=== PATIENT | female | born 1985 | race Two or more races ===

== ENCOUNTER 2018-07-04 11:09 | Emergency (ER) | payer SELFPAY ==
[2018-07-04] MEDS ORDERED: IPRATROPIUM/ALBUTEROL 0.5-2.5 MG/3 ML AMPUL NEB ONE (11:25)
[2018-07-04] MEDS ORDERED: ONDANSETRON 4 MG TAB.RAPDIS PO ONE (11:25)
--- NOTE | 2018-07-04 11:26 | ER Document Report ---
ED Medical Screen (RME) - General Chief Complaint: Abdominal Pain Stated Complaint: ABDOMINAL PAIN Time Seen by Provider: 07/04/18 11:22 Notes: 32-year-old female patient complains of generalized abdominal pain for 3 days with nausea vomiting diarrhea. She also may have had fever. She has been coughing for the past month. She does have asthma. She has been using her inhaler 4 times a day. She was put on prednisone just over a week ago but has finished that. That medicine was prescribed in [facility], she just moved here. I have greeted and performed a rapid initial assessment of this patient. A comprehensive ED assessment and evaluation of the patient, analysis of test results and completion of the medical decision making process will be conducted by additional ED providers. TRAVEL OUTSIDE OF THE [place] IN LAST 30 DAYS: No Physical Exam - Vital signs Vitals: Temp Pulse Resp BP Pulse Ox 98.2 F 103 H 20 109/75 99 07/04/18 11:17 07/04/18 11:17 07/04/18 11:17 07/04/18 11:17 07/04/18 11:17 Course - Vital Signs Vital signs: Temp Pulse Resp BP Pulse Ox 98.2 F 103 H 20 109/75 99 07/04/18 11:17 07/04/18 11:17 07/04/18 11:17 07/04/18 11:17 07/04/18 11:17
[2018-07-04 12:03] LABS: ABSOLUTE LYMPHOCYTES (AUTO) 1.9 10^3/uL (0.5-4.7); ABSOLUTE MONOCYTES (AUTO) 0.5 10^3/uL (0.1-1.4); ABSOLUTE NEUT (AUTO) 2.5 10^3/uL (1.7-8.2); ALANINE AMINOTRANSFERASE 75 U/L (9-52); ALBUMIN 4.7 g/dL (3.5-5.0); ALKALINE PHOSPHATASE 127 U/L (38-126); ANION GAP 7 (5-19); ASPARTATE AMINO TRANSFERASE 83 U/L (14-36); BASOPHILS % (AUTO) 0.2 % (0-2); BILIRUBIN,DIRECT 0.2 mg/dL (0.0-0.4); BILIRUBIN,TOTAL 0.4 mg/dL (0.2-1.3); BLOOD UREA NITROGEN 13 mg/dL (7-20); CALCIUM 9.2 mg/dL (8.4-10.2); CARBON DIOXIDE 30 mmol/L (22-30); CHLORIDE 105 mmol/L (98-107); EOSINOPHILS % (AUTO) 0.9 % (0-6); GLUCOSE 93 mg/dL (75-110); HEMATOCRIT 38.1 % (36.0-47.0); HEMOGLOBIN 13.2 g/dL (12.0-15.5); LYMPHOCYTES % (AUTO) 37.8 % (13-45); MEAN CORPUSCULAR HEMOGLOBIN 28.4 pg (27.0-33.4); MEAN CORPUSCULAR HGB CONC 34.7 g/dL (32.0-36.0); MEAN CORPUSCULAR VOLUME 82 fl (80-97); MONOCYTES % (AUTO) 10.7 % (3-13); PLATELET COUNT 164 10^3/uL (150-450); POTASSIUM 4.8 mmol/L (3.6-5.0); RED BLOOD COUNT 4.65 10^6/uL (3.72-5.28); RED CELL DISTRIBUTION WIDTH 13.2 % (11.5-14.0); SEGMENTED NEUTROPHILS % (AUTO) 50.4 % (42-78); SODIUM 141.6 mmol/L (137-145); TOTAL CELLS COUNTED % (AUTO) 100 %; TOTAL PROTEIN 9.3 g/dL (6.3-8.2); WHITE BLOOD COUNT 4.9 10^3/uL (4.0-10.5)
--- NOTE | 2018-07-04 12:32 | RADIOLOGY REPORT (SQ) ---
EXAM DESCRIPTION: CHEST 2 VIEWS COMPLETED DATE/TIME: 07/04/2018 12:08 pm REASON FOR STUDY: Asthmatic bronchitis, coughing times 1 month COMPARISON: None. EXAM PARAMETERS: NUMBER OF VIEWS: two views TECHNIQUE: Digital Frontal and Lateral radiographic views of the chest acquired. RADIATION DOSE: NA LIMITATIONS: none FINDINGS: LUNGS AND PLEURA: No consolidation, pneumothorax or pleural effusion. MEDIASTINUM AND HILAR STRUCTURES: No masses or contour abnormalities. HEART AND VASCULAR STRUCTURES: Heart normal size. No evidence for failure. BONES: No acute findings. HARDWARE: None in the chest. IMPRESSION: NO ACUTE RADIOGRAPHIC FINDING IN THE CHEST. TECHNICAL DOCUMENTATION: JOB ID: [id number] 2010 [employer]- All Rights Reserved Reading location - IP/workstation name: [email or web address]
[2018-07-04] MEDS ORDERED: LIDOCAINE 1% INJ-PF (10 MG/ML) 30 ML SDV NEB ONE (13:17)
--- NOTE | 2018-07-04 14:16 | RADIOLOGY REPORT (SQ) ---
EXAM DESCRIPTION: U/S ABDOMEN LIMITED W/O DOP COMPLETED DATE/TIME: 07/04/2018 2:02 pm REASON FOR STUDY: ruq pain possible hx of cholecystectomy? COMPARISON: None. TECHNIQUE: Dynamic and static grayscale images acquired of the abdomen and recorded on PACS. Additio nal selected color Doppler and spectral images recorded. LIMITATIONS: Overlying bowel gas. FINDINGS: PANCREAS: The pancreas is partially obscured by overlying bowel gas. The visualized pancr eas is unremarkable. LIVER: The liver measures 17 cm. Echotexture normal. LIVER VASCULATURE: Normal directional flow of the main portal vein. GALLBLADDER: Surgically absent. ULTRASOUND-DETECTED FABIAN'S SIGN: Negative. INTRAHEPATIC DUCTS AND COMMON DUCT: CBD and intrahepatic ducts normal caliber. INFERIOR VENA CAVA: Patent. AORTA: No aneurysm at the visualized sec. RIGHT KIDNEY: Measures 10.9 cm in length. Normal echogenicity. No hydronephrosis. No calcifications . PERITONEAL AND RIGHT PLEURAL SPACE: No ascites or effusions. IMPRESSION: Status post cholecystectomy. No biliary ductal dilation. TECHNICAL DOCUMENTATION: JOB ID: [id number] [id number] 2010 [employer]- All Rights Reserved Reading location - IP/workstation name: [email or web address]
--- NOTE | 2018-07-04 14:50 | ER Document Report ---
ED General - General Chief Complaint: Abdominal Pain Stated Complaint: ABDOMINAL PAIN Time Seen by Provider: 07/04/18 11:22 TRAVEL OUTSIDE OF THE [place] IN LAST 30 DAYS: No - HPI Patient complains to provider of: Shortness of breath cough abdominal pain Notes: Patient recently moved to the area approximate 1 month ago from [place] patient does have a history of HIV patient states she is not on any HIV medications at this time nor does she know her CD4 count or her viral load. Patient states she currently does not have a clinic that she follow with and is currently looking for infectious disease clinic. Patient states shortness of breath ongoing for approximately 1 week does have a history of asthma. Patient states last time she was on steroids was greater than 2 weeks ago. Patient also states right upper quadrant abdominal pain. Patient is unaware she has had her gallbladder removed in the past however states that she did have a history of stones in had surgery for that patient is unaware she had an EGD laparoscopic cholecystectomy or open cholecystectomy. There are some surgical wounds on the abdomen. Patient otherwise is resting comfortably denies any production of sputum denies any fevers - Related Data Allergies/Adverse Reactions: No Known Allergies Allergy (Verified 07/04/18 11:30) Past Medical History - Social History Smoking Status: Never Smoker Frequency of alcohol use: None Drug Abuse: None Family History: Reviewed & Not Pertinent Patient has suicidal ideation: No Patient has homicidal ideation: No Pulmonary Medical History: Reports: Hx Asthma Renal/ Medical History: Denies: Hx Peritoneal Dialysis Review of Systems - Review of Systems Constitutional: No symptoms reported EENT: No symptoms reported Cardiovascular: No symptoms reported Respiratory: Short of breath Gastrointestinal: Abdominal pain Genitourinary: No symptoms reported Female Genitourinary: No symptoms reported Musculoskeletal: No symptoms reported Skin: No symptoms reported Hematologic/Lymphatic: No symptoms reported Neurological/Psychological: No symptoms reported -: Yes All other systems reviewed and negative Physical Exam - Vital signs Vitals: Temp Pulse Resp BP Pulse Ox 98.2 F 103 H 20 109/75 99 07/04/18 11:17 07/04/18 11:17 07/04/18 11:17 07/04/18 11:17 07/04/18 11:17 Interpretation: Normal - General General appearance: Appears well, Alert - HEENT Head: Normocephalic, Atraumatic Eyes: Normal Pupils: PERRL - Respiratory Respiratory status: No respiratory distress Chest status: Nontender Breath sounds: Normal, Wheezing - Fine scattered Chest palpation: Normal - Cardiovascular Rhythm: Regular Heart sounds: Normal auscultation Murmur: No - Abdominal Inspection: Normal Distension: No distension Bowel sounds: Normal Tenderness: Tender - Right upper quadrant tenderness no guarding or rebound Organomegaly: No organomegaly - Back Back: Normal, Nontender - Extremities General upper extremity: Normal inspection, Nontender, Normal color, Normal ROM, Normal temperature General lower extremity: Normal inspection, Nontender, Normal color, Normal ROM, Normal temperature, Normal weight bearing. No: Kerline's sign - Neurological Neuro grossly intact: Yes Cognition: Normal Orientation: AAOx4 Arin Coma Scale Eye Opening: Spontaneous Arin Coma Scale Verbal: Oriented Arin Coma Scale Motor: Obeys Commands Arin Coma Scale Total: 15 Speech: Normal Motor strength normal: LUE, RUE, LLE, RLE Sensory: Normal - Psychological Associated symptoms: Normal affect, Normal mood - Skin Skin Temperature: Warm Skin Moisture: Dry Skin Color: Normal Course - Re-evaluation Re-evalutation: 07/04/18 14:46 Chest x-ray laboratory studies showed only slightly elevation in the patient's liver function test slightly elevated AST ALT and alk phos because of the right upper quadrant pain ultrasound was performed showing the patient did undergo a cholecystectomy. Patient upon reevaluation resting comfortably will discharge patient home with Ventolin inhalers short course of steroids for underlying asthma. Patient will be given information for the infectious disease clinic at [facility]. Patient will be discharged home - Vital Signs Vital signs: Temp Pulse Resp BP Pulse Ox 98.5 F 81 18 118/73 100 07/04/18 15:28 07/04/18 15:28 07/04/18 15:28 07/04/18 15:28 07/04/18 15:28 - Laboratory Result Diagrams: 07/04/18 11:35 07/04/18 11:35 Laboratory results interpreted by me: 07/04/18 11:35 AST 83 H ALT 75 H Alkaline Phosphatase 127 H Total Protein 9.3 H Discharge - Discharge Clinical Impression: Right upper quadrant abdominal pain, History of cholecystectomy, History of HIV infection, Asthma exacerbation Condition: Good Disposition: HOME, SELF-CARE Instructions: Abdominal Pain ([facility]), Asthma ([facility]) Additional Instructions: Your ultrasound chest x-ray laboratory studies not show any critical pathology for your shortness of breath or your right upper quadrant abdominal pain would recommend a bland diet low-fat diet for the next 24-48 hours. Please use the inhaler that we gave you here in ER 2 puffs every 4 hours as needed for shortness of breath please avoid any smoking. Please take steroids as prescribed. Please follow-up with the clinic provided for your underlying HIV [facility] Physician Specialist [phone] Prescriptions: RX: Albuterol Sulfate [Proair HFA Inhalation Aerosol 8.5 gm MDI] 2 puff IH Q4H PRN #1 mdi PRN Reason: RX: Prednisone [Deltasone 20 mg Tablet] 3 tab PO DAILY 5 Days tablet Ranitidine HCl [Zantac 75 mg Tablet] 75 mg PO BID #30 tablet Forms: Return to Work
[2018-07-04] MEDS ORDERED: ALBUTEROL SULFATE HFA (90 MCG/PUFF) 8 GM MDI (1 MDI/ER DISP) IH ONE (14:51)
[2018-07-04] MEDS ORDERED: PREDNISONE 20 MG TABLET PO ONE (14:51)
[2018-07-04 15:29] VITALS: BP 118/73
== END 2018-07-04 15:33 | disposition home or self-care (01) ==
LOC: ER 11:09
DX: J45.901 Unspecified asthma with (acute) exacerbation (principal); R11.2 Nausea with vomiting, unspecified; R19.7 Diarrhea, unspecified; R10.11 Right upper quadrant pain; R10.84 Generalized abdominal pain; B20 Human immunodeficiency virus [HIV] disease; Z90.49 Acquired absence of other specified parts of digestive tract
CPT/HCPCS: 94640 ×2; 99284; 36415; 84703; 85025; 80053; 71046; 76705; S0119; J3490 ×2; J7512; J7620

== ENCOUNTER 2018-07-11 12:37 | Inpatient (IN) | payer SELFPAY ==
[2018-07-11] MEDS ORDERED: PANTOPRAZOLE SODIUM 40 MG VIAL IV PRN (13:09)
[2018-07-11] MEDS ORDERED: PANTOPRAZOLE SODIUM 40 MG VIAL IV ONE (13:09)
[2018-07-11] MEDS ORDERED: NORMAL SALINE 1000 ML 1,000 ML IV ONE ×2 (13:09→15:09)
[2018-07-11 13:53] LABS: ALANINE AMINOTRANSFERASE 48 U/L (9-52); ALBUMIN 4.3 g/dL (3.5-5.0); ALKALINE PHOSPHATASE 84 U/L (38-126); ANION GAP 13 (5-19); ASPARTATE AMINO TRANSFERASE 71 U/L (14-36); BILIRUBIN,DIRECT 0.4 mg/dL (0.0-0.4); BILIRUBIN,TOTAL 0.9 mg/dL (0.2-1.3); BLOOD UREA NITROGEN 16 mg/dL (7-20); CALCIUM 8.4 mg/dL (8.4-10.2); CARBON DIOXIDE 25 mmol/L (22-30); CHLORIDE 102 mmol/L (98-107); GLUCOSE 118 mg/dL (75-110); POTASSIUM 3.7 mmol/L (3.6-5.0); SODIUM 140.4 mmol/L (137-145); TOTAL PROTEIN 8.3 g/dL (6.3-8.2)
[2018-07-11 13:57] LABS: HEMATOCRIT 35.2 % (36.0-47.0); HEMOGLOBIN 11.9 g/dL (12.0-15.5); MEAN CORPUSCULAR HEMOGLOBIN 27.7 pg (27.0-33.4); MEAN CORPUSCULAR HGB CONC 33.8 g/dL (32.0-36.0); MEAN CORPUSCULAR VOLUME 82 fl (80-97); PLATELET COUNT 119 10^3/uL (150-450); RED BLOOD COUNT 4.29 10^6/uL (3.72-5.28); RED CELL DISTRIBUTION WIDTH 12.8 % (11.5-14.0); WHITE BLOOD COUNT 13.1 10^3/uL (4.0-10.5)
--- NOTE | 2018-07-11 14:13 | RADIOLOGY REPORT (SQ) ---
EXAM DESCRIPTION: CHEST SINGLE VIEW COMPLETED DATE/TIME: 07/11/2018 2:02 pm REASON FOR STUDY: vomit bld, pain in epigast+shoulder, r/o freeai r COMPARISON: 07/04/2018 EXAM PARAMETERS: NUMBER OF VIEWS: One view. TECHNIQUE: Single frontal radiographic view of the chest acquired. RADIATION DOSE: NA LIMITATIONS: None. FINDINGS: LUNGS AND PLEURA: Heterogeneous opacity of the right upper lobe, possibly with a small ass ociated effusion. Elevation of the right hemidiaphragm. MEDIASTINUM AND HILAR STRUCTURES: No masses. Contour normal. HEART AND VASCULAR STRUCTURES: Heart normal in size. Normal vasculature. BONES: No acute findings. HARDWARE: None in the chest. OTHER: Unremarkable partially included upper abdomen. IMPRESSION: Heterogeneous opacity of the right upper lobe, possibly with a small associated effusion . Elevation of the right hemidiaphragm. Findings are concerning for infection and possibly underlyi ng mass. Consider CT to further evaluate. At minimum recommend follow-up radiographs in 6 to 8 week s to ensure complete resolution. TECHNICAL DOCUMENTATION: JOB ID: [id number] [employer]- All Rights Reserved Reading location - IP/workstation name: [email or web address]
[2018-07-11 14:26] LABS: ABSOLUTE LYMPHOCYTES# (MANUAL) 0.8 10^3/uL (0.5-4.7); ABSOLUTE MONOCYTES # (MANUAL) 0.4 10^3/uL (0.1-1.4); ABSOLUTE NEUTROPHILS# (MANUAL) 11.9 10^3/uL (1.7-8.2); BAND NEUTROPHILS % (MANUAL) 5 % (3-5); BASOPHILS % (MANUAL) 0 % (0-2); EOSINOPHILS % (MANUAL) 0 % (0-6); LYMPHOCYTES % (MANUAL) 6 % (13-45); MONOCYTES % (MANUAL) 3 % (3-13); SEGMENTED NEUTROPHILS % (MAN) 86 % (42-78); TOTAL CELLS COUNTED 100
[2018-07-11 14:27] LABS: PLATELET COMMENT DECREASED
--- NOTE | 2018-07-11 14:58 | RADIOLOGY REPORT (SQ) ---
EXAM DESCRIPTION: CT CHEST WITH; CT ABD/PELVIS WITH IV ONLY COMPLETED DATE/TIME: 07/11/2018 2:44 pm; 07/11/2018 2:43 pm REASON FOR STUDY: RLL mass on CT with hemoptysis; vomiting blood, pain in epigast+shoulder CONTRAST TYPE AND DOSE: contrast/concentration: Isovue 350.00 mg/ml; Total Contrast Delivered: 94.0 ml; Total Saline Delivered: 71.0 ml RENAL FUNCTION: None required. The patient is less than 50 years old. COMPARISON: Same day chest radiograph, chest radiograph 07/04/2018 TECHNIQUE: CT scan of the chest performed using helical scanning technique with dynamic intravenous contrast injection. Images reviewed with lung, soft tissue and bone windows. Reconstructed coronal a nd sagittal MPR images reviewed. All images stored on PACS. All CT scanners at this facility use dose modulation, iterative reconstruction, and/or weight based d osing when appropriate to reduce radiation dose to as low as reasonably achievable (ALARA). [facility]: Dose Right [facility]: CareDose [facility]: Dose Right [facility]: Teradose 4D [facility]: [employer] RADIATION DOSE: CT Rad equipment meets quality standard of care and radiation dose reduction techniq ues were employed. CTDIvol: 11.6 - 15.4 mGy. DLP: 1669 mGy-cm.. LIMITATIONS: None. FINDINGS: AXILLAE: No adenopathy. CHEST WALL: No masses. No subcutaneous air. LUNGS: There is a large consolidation of the dependent right upper lobe. There is bandlike atelectas is or scarring of the right lower lobe. PLEURA: No effusions. No calcifications. THYROID: No masses or significant asymmetry. HILAR AND MEDIASTINAL STRUCTURES: No identified masses or abnormal nodes. AORTA AND GREAT VESSELS: No aneurysm. No dissection. PULMONARY ARTERIES: No identified pulmonary emboli. Study not optimized for the pulmonary arteries. HEART: No pericardial effusion. HARDWARE AND LIFELINES: None. BONES: No significant finding. OTHER: No other significant finding. IMPRESSION: Large consolidation of the dependent right upper lobe, likely infectious given rapid int erval resolution compared chest radiograph dated 07/04/2018. COMPARISON: None. RADIATION DOSE: CT Rad equipment meets quality standard of care and radiation dose reduction techniq ues were employed. CTDIvol: 11.6 - 15.4 mGy. DLP: 1669 mGy-cm.mGy. TECHNIQUE: CT scan of the abdomen and pelvis performed with intravenous and oral contrast using kayla mitchell scanning technique with dynamic intravenous contrast injection. Images reviewed with lung, soft tissue and bone windows. Reconstructed coronal and sagittal MPR images reviewed. Delayed images for evaluation of the urinary system also acquired and evaluated. All images stored on PACS. All CT scanners at this facility use dose modulation, iterative reconstruction, and/or weight based d osing when appropriate to reduce radiation dose to as low as reasonably achievable (ALARA). [facility]: Dose Right [facility]: SureCare [facility]: Dose Right [facility]: Teradose 4D [facility]: [employer] FINDINGS: LIVER: Normal size. No masses. No dilated ducts. Hepatic steatosis. SPLEEN: Normal size. No focal lesions. PANCREAS: No masses. No significant calcifications. No adjacent inflammation or peripancreatic flui d collections. Pancreatic duct not dilated. GALLBLADDER: Surgically absent. ADRENAL GLANDS: No significant masses or asymmetry. RIGHT KIDNEY AND URETER: No solid masses. No significant calcification. No hydronephrosis or hydroure ter. LEFT KIDNEY AND URETER: No solid masses. No significant calcification. No hydronephrosis or hydrouret er. AORTA AND VESSELS: No aneurysm. No dissection. Renal arteries, SMA, celiac without stenosis. RETROPERITONEUM: No retroperitoneal adenopathy, hemorrhage or masses. LARGE AND SMALL BOWEL: No dilatation. No masses. No wall thickening. APPENDIX: Normal. ABDOMINAL WALL: No hernia or masses. PERITONEAL CAVITY: No free air. No free fluid. No peritoneal implants or masses. PELVIS: No mass or free fluid. Normal bladder. BONES: No significant or acute findings. OTHER: No other significant finding. IMPRESSION: Status post cholecystectomy. Hepatic steatosis. No CT findings to explain acute abdomi nal pain. TECHNICAL DOCUMENTATION: JOB ID: [id number] Quality ID # [id number]: Final reports with documentation of one or more dose reduction techniques (e.g., Au tomated exposure control, adjustment of the mA and/or kV according to patient size, use of iterative reconstruction technique) 2010 [employer]- All Rights Reserved Reading location - IP/workstation name: [email or web address]
--- NOTE | 2018-07-11 14:58 | RADIOLOGY REPORT (SQ) ---
EXAM DESCRIPTION: CT CHEST WITH; CT ABD/PELVIS WITH IV ONLY COMPLETED DATE/TIME: 07/11/2018 2:44 pm; 07/11/2018 2:43 pm REASON FOR STUDY: RLL mass on CT with hemoptysis; vomiting blood, pain in epigast+shoulder CONTRAST TYPE AND DOSE: contrast/concentration: Isovue 350.00 mg/ml; Total Contrast Delivered: 94.0 ml; Total Saline Delivered: 71.0 ml RENAL FUNCTION: None required. The patient is less than 50 years old. COMPARISON: Same day chest radiograph, chest radiograph 07/04/2018 TECHNIQUE: CT scan of the chest performed using helical scanning technique with dynamic intravenous contrast injection. Images reviewed with lung, soft tissue and bone windows. Reconstructed coronal a nd sagittal MPR images reviewed. All images stored on PACS. All CT scanners at this facility use dose modulation, iterative reconstruction, and/or weight based d osing when appropriate to reduce radiation dose to as low as reasonably achievable (ALARA). [facility]: Dose Right [facility]: CareDose [facility]: Dose Right [facility]: Teradose 4D [facility]: [employer] RADIATION DOSE: CT Rad equipment meets quality standard of care and radiation dose reduction techniq ues were employed. CTDIvol: 11.6 - 15.4 mGy. DLP: 1669 mGy-cm.. LIMITATIONS: None. FINDINGS: AXILLAE: No adenopathy. CHEST WALL: No masses. No subcutaneous air. LUNGS: There is a large consolidation of the dependent right upper lobe. There is bandlike atelectas is or scarring of the right lower lobe. PLEURA: No effusions. No calcifications. THYROID: No masses or significant asymmetry. HILAR AND MEDIASTINAL STRUCTURES: No identified masses or abnormal nodes. AORTA AND GREAT VESSELS: No aneurysm. No dissection. PULMONARY ARTERIES: No identified pulmonary emboli. Study not optimized for the pulmonary arteries. HEART: No pericardial effusion. HARDWARE AND LIFELINES: None. BONES: No significant finding. OTHER: No other significant finding. IMPRESSION: Large consolidation of the dependent right upper lobe, likely infectious given rapid int erval resolution compared chest radiograph dated 07/04/2018. COMPARISON: None. RADIATION DOSE: CT Rad equipment meets quality standard of care and radiation dose reduction techniq ues were employed. CTDIvol: 11.6 - 15.4 mGy. DLP: 1669 mGy-cm.mGy. TECHNIQUE: CT scan of the abdomen and pelvis performed with intravenous and oral contrast using kayla mitchell scanning technique with dynamic intravenous contrast injection. Images reviewed with lung, soft tissue and bone windows. Reconstructed coronal and sagittal MPR images reviewed. Delayed images for evaluation of the urinary system also acquired and evaluated. All images stored on PACS. All CT scanners at this facility use dose modulation, iterative reconstruction, and/or weight based d osing when appropriate to reduce radiation dose to as low as reasonably achievable (ALARA). [facility]: Dose Right [facility]: SureCare [facility]: Dose Right [facility]: Teradose 4D [facility]: [employer] FINDINGS: LIVER: Normal size. No masses. No dilated ducts. Hepatic steatosis. SPLEEN: Normal size. No focal lesions. PANCREAS: No masses. No significant calcifications. No adjacent inflammation or peripancreatic flui d collections. Pancreatic duct not dilated. GALLBLADDER: Surgically absent. ADRENAL GLANDS: No significant masses or asymmetry. RIGHT KIDNEY AND URETER: No solid masses. No significant calcification. No hydronephrosis or hydroure ter. LEFT KIDNEY AND URETER: No solid masses. No significant calcification. No hydronephrosis or hydrouret er. AORTA AND VESSELS: No aneurysm. No dissection. Renal arteries, SMA, celiac without stenosis. RETROPERITONEUM: No retroperitoneal adenopathy, hemorrhage or masses. LARGE AND SMALL BOWEL: No dilatation. No masses. No wall thickening. APPENDIX: Normal. ABDOMINAL WALL: No hernia or masses. PERITONEAL CAVITY: No free air. No free fluid. No peritoneal implants or masses. PELVIS: No mass or free fluid. Normal bladder. BONES: No significant or acute findings. OTHER: No other significant finding. IMPRESSION: Status post cholecystectomy. Hepatic steatosis. No CT findings to explain acute abdomi nal pain. TECHNICAL DOCUMENTATION: JOB ID: [id number] Quality ID # [id number]: Final reports with documentation of one or more dose reduction techniques (e.g., Au tomated exposure control, adjustment of the mA and/or kV according to patient size, use of iterative reconstruction technique) 2010 [employer]- All Rights Reserved Reading location - IP/workstation name: [email or web address]
[2018-07-11] MEDS ORDERED: ACETAMINOPHEN 325 MG TABLET PO ONE (15:09)
[2018-07-11] MEDS ORDERED: LEVOFLOXACIN 750 MG/D5W RTU 750 MG/150 ML RTUPB IV ONE (15:09)
[2018-07-11 15:39] LABS: VENOUS BLOOD HCO3 23.9 mmol/L (20-32); VENOUS BLOOD PCO2 40.4 mmHg (35-63); VENOUS BLOOD PH 7.39 (7.30-7.42)
[2018-07-11] MEDS ORDERED: KETOROLAC TROMETHAMINE INJ/PF 30 MG/1 ML SDV IV ONE (15:40)
[2018-07-11 15:42] LABS: INTERNATIONAL RATION (INR) 1.07; PROTHROMBIN TIME 14.5 SEC (11.4-15.4)
--- NOTE | 2018-07-11 15:42 | ER Document Report ---
Entered by SHERIDAN LUCAS SCRIBE 07/11/18 1258 Acting as scribe for:ASAF SPENCER DO ED GI/ - General Chief Complaint: Flank Pain Stated Complaint: ABDOMINAL PAIN Time Seen by Provider: 07/11/18 12:42 Information source: Patient Notes: 32-year-old female who presents to the emergency department today with complaints of hemoptysis, hematemesis, and right upper quadrant and left lower quadrant abdominal pain. Patient states she thinks she has vomited about a teaspoon of blood in total since last night. Patient states her abdominal pain increases with deep breathing and coughing. Patient states that she takes Tylenol but denies taking ibuprofen. Patient states she is not sure if she is . Patient states last night she was very hot and sweaty but did not take her temperature. Patient also has had some diarrhea. TRAVEL OUTSIDE OF THE [place] IN LAST 30 DAYS: No - Related Data Allergies/Adverse Reactions: No Known Allergies Allergy (Verified 07/04/18 11:30) Past Medical History - General Information source: Patient, [facility] Records - Social History Smoking Status: Never Smoker Cigarette use (# per day): No Frequency of alcohol use: None Drug Abuse: None Family History: Reviewed & Not Pertinent Pulmonary Medical History: Reports: Hx Asthma Infectious Medical History: Reports: Hx HIV Surgical Hx: Negative Review of Systems - Review of Systems Constitutional: See HPI, Chills, Diaphoresis EENT: No symptoms reported Cardiovascular: No symptoms reported Respiratory: See HPI, Cough, Hemoptysis - about a teaspoon Gastrointestinal: See HPI, Abdominal pain, Diarrhea, Vomiting, Blood in vomit Genitourinary: No symptoms reported Female Genitourinary: No symptoms reported Musculoskeletal: No symptoms reported Skin: No symptoms reported Hematologic/Lymphatic: No symptoms reported Neurological/Psychological: No symptoms reported -: Yes All other systems reviewed and negative Physical Exam - Vital signs Vitals: Resp BP Pulse Ox 17 85/63 L 98 07/11/18 12:43 07/11/18 12:43 07/11/18 12:43 Interpretation: Hypotensive, Tachycardic, Tachypneic - Notes Notes: PHYSICAL EXAM GENERAL: Alert, interacts well. No acute distress. Hypotensive on bedside monitor, 91/79. HEAD: Normocephalic, atraumatic. EYES: Pupils equal, round, and reactive to light. Extraocular movements intact. ENT: Oral mucosa moist, tongue midline. NECK: Full range of motion. Supple. Trachea midline. LUNGS: Rhonchi in the right lower lobe, no wheezes or rales. No respiratory distress. HEART: Tachycardic, regular rhythm. No murmurs, gallops, or rubs. ABDOMEN: Soft, mild generalized abdominal tenderness with palpation. Non- distended. Bowel sounds present in all 4 quadrants. No guarding, rigidity, or rebound. EXTREMITIES: Moves all 4 extremities spontaneously. No edema, radial and dorsalis pedis pulses 2/4 bilaterally. No cyanosis. NEUROLOGICAL: Alert and oriented x3. Normal speech. PSYCH: Normal affect, normal mood. SKIN: Warm, diaphoretic, normal turgor. No rashes or lesions noted. Course - Re-evaluation Re-evalutation: 07/11/18 15:39 On arrival with the concern and report of hematemesis as well as hemoptysis I was worried for the potential of perforated gastric ulcer considering her hypotension abdominal pain, upright chest x-ray did not show any free air, patient refused an acute abdominal series until test could be completed, test is negative, upright chest x-ray did not show any free air but it did show a large right upper lobe consolidation concerning for possible malignancy versus infection. CT scan of chest abdomen pelvis was performed looking for sources of infections and causes of her hemoptysis and hematemesis and to further investigate this lesion. CT scan showed large consolidation in the dependent portion of the right upper lobe, CT scan the abdomen pelvis showed hepatic steatosis but no other abnormalities. No evidence of free air. Patient had a leukocytosis of 13.1, mild anemia with a hemoglobin 11.9, platelets low at 119, now that we know that this is not a perforated ulcer I did stop the order for Protonix and she then developed a fever, she now meets sepsis criteria with her tachycardia, hypotension, fever and source of infection. As soon as this was identified she was started on Levaquin and the sepsis protocol was started, CMP grossly unremarkable. EKG is nonischemic. test is negative. Discussed with , who accepted the patient to his service. 07/11/18 15:40 Patient actually meets criteria for severe sepsis but not septic shock. Patient was given a liter of lactated Ringer's by EMS which was completed here and documented by the nurse. Patient will have shortly completed her 30 mL/kg of IV fluids. 07/11/18 16:38 Dr. Bennett reviewed prior note from Dr. Riley when she was in the emergency department within the past month, he noted in his narrative that the patient had a history of HIV but is no longer followed for this and no longer takes any medications. Taking this into consideration we have also added Bactrim as a treatment for her pneumonia in case this represents P. jerovecii pneumonia. Patient also had HIV added to her past medical history. - Vital Signs Vital signs: Temp Pulse Resp BP Pulse Ox 102.7 F H 37 H 102/62 96 07/11/18 14:40 07/11/18 16:01 07/11/18 16:01 07/11/18 16:01 - Laboratory Result Diagrams: 07/11/18 12:42 07/11/18 12:42 Laboratory results interpreted by me: 07/11/18 07/11/18 07/11/18 12:42 12:42 15:28 WBC 13.1 H Hgb 11.9 L Hct 35.2 L Plt Count 119 L Seg Neuts % (Manual) 86 H Lymphocytes % (Manual) 6 L Abs Neuts (Manual) 11.9 H Glucose 118 H Lactic Acid 2.2 H AST 71 H Total Protein 8.3 H - EKG Interpretation by Me Additional EKG results interpreted by me: 07/11/18 15:39 EKG shows sinus tachycardia at a rate of 129, normal axis, normal intervals, no ST segment elevations or depressions, no T wave inversions per my interpretation. Critical Care Note - Critical Care Note Total time excluding time spent on procedures (mins): 35 Discharge - Discharge Clinical Impression: Severe sepsis, History of cholecystectomy, Hepatic steatosis, History of HIV infection Right upper lobe pneumonia Qualifiers: Pneumonia type: due to unspecified organism Qualified Code(s): J18.1 - Lobar pneumonia, unspecified organism Condition: Serious Disposition: ADMITTED INPATIENT Admitting Provider: [facility] Admitted: ANNA Scribe Attestation: 07/11/18 16:39 I personally performed the services described in the documentation, reviewed and edited the documentation which was dictated to the scribe in my presence, and it accurately records my words and actions. I personally performed the services described in the documentation, reviewed and edited the documentation which was dictated to the scribe in my presence, and it accurately records my words and actions.
[2018-07-11] MEDS ORDERED: SULFAMETHOXAZOLE/TRIMETHOPRIM 800-160 MG TABLET PO ONE (16:19)
[2018-07-11] MEDS ORDERED: NORMAL SALINE 1000 ML 1,000 ML IV PRN (16:57)
[2018-07-11] MEDS ORDERED: ALBUTEROL SULFATE 0.083% NEB 2.5 MG/3 ML AMPUL NEB PRN (16:57)
[2018-07-11] MEDS ORDERED: NORMAL SALINE 1000 ML 500 ML IV ONE (17:21)
--- NOTE | 2018-07-11 17:44 | EKG REPORT ---
SEVERITY:- OTHERWISE NORMAL ECG - SINUS TACHYCARDIA : Confirmed by: Ben Hawk MD 11-Jul-2018 17:43:56
--- NOTE | 2018-07-11 17:48 | PDOC H&P ---
History of Present Illness Admission Date/PCP: 07/11/18 16:08 no pcp Patient complains of: shortness of breath and abdominal pain History of Present Illness: EDVIN HOOK is a 32 year old female with no significant past medical history except for asthma presented to the ED complaining of shortness of breath and abdominal pain. Patient states that she has been having abdominal pain for a while and shortness of breath also been going on for a few weeks. Patient was recently seen in the ER here on 07/04/18 complaining of similar symptoms. At that point she was given prednisone and discharged home and told that her abdominal pain was most likely due to reflux. Patient states that she continues to have epigastric abdominal pain and states that sometimes is worse with drinking coffee. She denies any history excessive use of ibuprofen, aspirin or other NSAIDs. She does tell me that she thinks she has a history of reflux but she does not really follow a appropriate diet and lifestyle. She states that she did not take any thing for her reflux. States that the pain does not radiate anywhere and usually stays in the epigastrium. She denies any other associated symptoms such as nausea or vomiting. Patient tells me that she has been feeling short of breath for a few weeks now. She is not sure why. She has recently moved from [facility], [place] and has been living here in [place] for the last 4 months. She did not have any insurance or any primary care doctor. States she has also been coughing for about a month. Dates she is also been having some pleuritic chest pain on the right side which started last night. She also is complaining of her hair falling off. Last night she also coughed up some small amounts of blood with her cough and that is why she came to the ER today for evaluation. She denies any night sweats but has been coughing and started to spit up some small amounts of blood but she states is not always. I asked patient if he has any medical problem and she tells me she has history of asthma but otherwise is healthy. I asked her if she has HIV as she told the ER doctor and her previous visit to the ER a few days ago. Patient states "I am not sure but I think I do". Patient states that her mother of cancer of the head her hair fell off. Patient states that her father has a history of heart disease. Past Medical History Pulmonary Medical History: Reports: Asthma Infectious Medical History: Reports: HIV - Tested + in 2007, not retested, never took meds, doesn't believe she has it Social History Information Source: Patient Smoking Status: Never Smoker - Advance Directive Resuscitation Status: Full Code Family History Family History: Other - Heart disease in father, cancer in mother of unknown origin Parental Family History Reviewed: Yes - Mother had a history of cancer-unknown per patient, father's history of hea Children Family History Reviewed: Unknown Sibling(s) Family History Reviewed.: Unknown Medication/Allergy Home Medications: Albuterol Sulfate [Proair HFA Inhalation Aerosol 8.5 gm MDI] 2 puff IH Q4H PRN #1 mdi 07/04/18 Prednisone [Deltasone 20 mg Tablet] 3 tab PO DAILY 5 Days tablet 07/04/18 Ranitidine HCl [Zantac 75 mg Tablet] 75 mg PO BID #30 tablet 07/04/18 Allergies/Adverse Reactions: No Known Allergies Allergy (Verified 07/04/18 11:30) Physical Exam Vital Signs: Temp Pulse Resp BP Pulse Ox 101.7 F H 33 H 93/57 L 96 07/11/18 16:41 07/11/18 16:30 07/11/18 16:30 07/11/18 16:30 Intake & Output 07/10/18 07/11/18 07/12/18 06:59 06:59 06:59 Weight 180 lb General appearance: PRESENT: mild distress Head exam: PRESENT: atraumatic, normocephalic Eye exam: PRESENT: EOMI. ABSENT: conjunctival injection, scleral icterus Ear exam: PRESENT: normal external ear exam Mouth exam: PRESENT: moist, tongue midline Neck exam: ABSENT: tracheal deviation Respiratory exam: PRESENT: accessory muscle use, decreased breath sounds - Poor inspiratory effort, symmetrical, tachypnea Cardiovascular exam: PRESENT: +S1, +S2, tachycardia GI/Abdominal exam: PRESENT: normal bowel sounds, soft, tenderness - Epigastric tender to palpation Extremities exam: ABSENT: pedal edema, +2 edema Neurological exam: PRESENT: alert, awake, oriented to person, oriented to place, oriented to time, CN II-XII grossly intact Skin exam: PRESENT: dry, warm Results Laboratory Results: 07/11/18 12:42 07/11/18 12:42 07/11/18 07/11/18 07/11/18 12:42 12:42 12:42 WBC 13.1 H RBC 4.29 Hgb 11.9 L Hct 35.2 L MCV 82 MCH 27.7 MCHC 33.8 RDW 12.8 Plt Count 119 L Seg Neutrophils % Not Reportable Lymphocytes % Not Reportable Monocytes % Not Reportable Eosinophils % Not Reportable Basophils % Not Reportable Absolute Neutrophils Not Reportable Absolute Lymphocytes Not Reportable Absolute Monocytes Not Reportable Absolute Eosinophils Not Reportable Absolute Basophils Not Reportable VBG pH VBG pCO2 VBG HCO3 VBG Base Excess Sodium 140.4 Potassium 3.7 Chloride 102 Carbon Dioxide 25 Anion Gap 13 BUN 16 Creatinine 0.93 Est GFR ( Amer) > 60 Est GFR (Non-Af Amer) > 60 Glucose 118 H Lactic Acid Calcium 8.4 Total Bilirubin 0.9 AST 71 H ALT 48 Alkaline Phosphatase 84 Total Protein 8.3 H Albumin 4.3 Serum HCG, Qual NEGATIVE 07/11/18 07/11/18 15:09 15:28 WBC RBC Hgb Hct MCV MCH MCHC RDW Plt Count Seg Neutrophils % Lymphocytes % Monocytes % Eosinophils % Basophils % Absolute Neutrophils Absolute Lymphocytes Absolute Monocytes Absolute Eosinophils Absolute Basophils VBG pH 7.39 VBG pCO2 40.4 VBG HCO3 23.9 VBG Base Excess -1.0 Sodium Potassium Chloride Carbon Dioxide Anion Gap BUN Creatinine Est GFR ( Amer) Est GFR (Non-Af Amer) Glucose Lactic Acid 2.2 H Calcium Total Bilirubin AST ALT Alkaline Phosphatase Total Protein Albumin Serum HCG, Qual Impressions: Abdomen/Pelvis CT 07/11/18 13:09 IMPRESSION: Large consolidation of the dependent right upper lobe, likely infectious given rapid interval resolution compared chest radiograph dated 07/04/2018. IMPRESSION: Status post cholecystectomy. Hepatic steatosis. No CT findings to explain acute abdominal pain. Chest X-Ray 07/11/18 13:09 IMPRESSION: Heterogeneous opacity of the right upper lobe, possibly with a small associated effusion. Elevation of the right hemidiaphragm. Findings are concerning for infection and possibly underlying mass. Consider CT to further evaluate. At minimum recommend follow-up radiographs in 6 to 8 weeks to ensure complete resolution. Chest CT 07/11/18 14:18 IMPRESSION: Large consolidation of the dependent right upper lobe, likely infectious given rapid interval resolution compared chest radiograph dated 07/04/2018. IMPRESSION: Status post cholecystectomy. Hepatic steatosis. No CT findings to explain acute abdominal pain. Assessment & Plan - Diagnosis (1) Severe sepsis Is this a current diagnosis for this admission?: Yes (2) Asthma exacerbation Qualifiers: Asthma severity: unspecified severity Asthma persistence: unspecified Qualified Code(s): J45.901 - Unspecified asthma with (acute) exacerbation Is this a current diagnosis for this admission?: Yes (3) Epigastric abdominal tenderness Is this a current diagnosis for this admission?: Yes (4) History of HIV infection Is this a current diagnosis for this admission?: Yes (5) Right upper lobe pneumonia Qualifiers: Pneumonia type: due to unspecified organism Qualified Code(s): J18.1 - Lobar pneumonia, unspecified organism Is this a current diagnosis for this admission?: Yes (6) Hemoptysis Is this a current diagnosis for this admission?: Yes (7) Hypotension Is this a current diagnosis for this admission?: Yes - Time Time Spent: Greater than 70 Minutes Anticipated discharge: Home - Inpatient Certification Based on my medical assessment, after consideration of the patient's comorbidities, presenting symptoms, or acuity I expect that the services needed warrant INPATIENT care.: Yes I certify that my determination is in accordance with my understanding of Medicare's requirements for reasonable and necessary INPATIENT services [42 CFR 412.3e].: Yes Medical Necessity: Need Close Monitoring Due to Risk of Patient Decompensation, Need For IV Fluids, Need For Continuous Telemetry Monitoring, Need for IV Antibiotics, Risk of Complication if Not Cared For in Hospital - Plan Summary Plan Summary: Severe sepsis-elevated heart rate, hypotensive, elevated WBC count and lactic acid. In the ED she received 1 dose of Levaquin and p.o. Bactrim. I called pharmacy and spoke to them about the fact that she may have HIV and now she has this right-sided consolidation suspicious for infectious causes. I am worried that if she has HIV that this organism might be pneumocystis versus Mycobacterium or other causes. At this time I was recommended by pharmacy to start IV azithromycin and IV Bactrim. Blood cultures are drawn and pending. I will also send for sputum cultures, fungal cultures. Repeat lactic acid in 3 hours until less than 2. Right upper lobe pneumonia-plan above Asthma exacerbation-we will start her on DuoNeb every 6 hours and albuterol as needed. Epigastric tenderness-most likely related to reflux-we will start her on Pepcid twice daily. Hemoptysis-states she brought up some small amounts of blood with her sputum as she has been coughing for the last month or so now. We will continue to monitor and repeat CBC in the morning. Hemoglobin seems to be stable. At this time I am also concerned about TB since she has an upper lobe ?consolidations/Infection-we will place her on airborne precaution and check AFB. History of HIV-questionable at this time as patient did not initially tell ED physician that she had it. In her previous visit on 07/04/18 she had mentioned to the ER doctor at that time since he documented on his chart. As per ER doctor at that time she has been looking for an infectious disease doctor in [place] but currently is not on any medications. I have sent for HIV and quantitative PCR. I have also sent for other HIV related blood work such as hepatitis, RPR, fungal cultures, lipid panel, TSH and GC/chlamydia. Hypertension-most likely secondary to severe sepsis-we will start on IV fluids at 125 cc an hour and give fluid boluses as needed. Placed in IMCU for now. If she requires pressors then we will start when appropriate.
[2018-07-11 17:56] LABS: CHOLESTEROL 104.39 mg/dL (0-200); TRIGLYCERIDES 54 mg/dL (<150)
[2018-07-11] MEDS ORDERED: SULFAMETHOX/TRIMETH 800-160 MG/10 ML VIAL IV PRN (17:58)
[2018-07-11 18:07] LABS: DIRECT LDL 61 mg/dL (<100)
[2018-07-11 18:58] LABS: APPEARANCE,URINE CLEAR; BILIRUBIN,URINE NEGATIVE (NEGATIVE); COLOR,URINE YELLOW; GLUCOSE, URINE NEGATIVE (NEGATIVE); KETONES,URINE NEGATIVE (NEGATIVE); LEUKOCYTE ESTERASE,URINE NEGATIVE (NEGATIVE); NITRITE,URINE NEGATIVE (NEGATIVE); PROTEIN,URINE NEGATIVE (NEGATIVE); URINE SPECIFIC GRAVITY 1.046; UROBILINOGEN,URINE NEGATIVE mg/dL (<2.0)
[2018-07-11 19:13] LABS: URINE AMPHETAMINES SCREEN NEGATIVE; URINE BARBITURATES SCREEN NEGATIVE; URINE BENZODIAZEPINES SCREEN NEGATIVE; URINE COCAINE SCREEN NEGATIVE; URINE MARIJUANA (THC) SCREEN NEGATIVE; URINE METHADONE SCREEN NEGATIVE; URINE PHENCYCLIDINE SCREEN NEGATIVE
[2018-07-11] MEDS ORDERED: NORMAL SALINE 500 ML IV ONE (19:15)
[2018-07-11] MEDS: IPRATROPIUM/ALBUTEROL 0.5-2.5 MG/3 ML AMPUL NEB SCH (20:40)
[2018-07-11] MEDS ORDERED: SULFAMETHOX/TRIMETH 800-160 MG/10 ML VIAL IV ONE (20:46)
[2018-07-11] MEDS: WATER IV SCH ×2 (22:00→23:44)
[2018-07-11] MEDS: TRIMETHOPRIM IV SCH ×2 (22:00→23:44)
[2018-07-11] MEDS: SULFAMETHOXAZOLE IV SCH ×2 (22:00→23:44)
[2018-07-11] MEDS: DEXTROSE 5% IV SCH ×2 (22:00→23:44)
[2018-07-11] MEDS: FAMOTIDINE 20 MG TABLET PO SCH (22:06)
[2018-07-11] MEDS: ACETAMINOPHEN 325 MG TABLET PO PRN (22:06)
[2018-07-11] MEDS: KETOROLAC TROMETHAMINE INJ/PF 30 MG/1 ML SDV IV PRN (23:52)
[2018-07-12] MEDS ORDERED: SULFAMETHOX/TRIMETH 800-160 MG/10 ML VIAL IV ONE (04:58)
[2018-07-12 05:39] LABS: ABSOLUTE LYMPHOCYTES (AUTO) 1.2 10^3/uL (0.5-4.7); ABSOLUTE MONOCYTES (AUTO) 0.4 10^3/uL (0.1-1.4); ABSOLUTE NEUT (AUTO) 11.9 10^3/uL (1.7-8.2); BASOPHILS % (AUTO) 0.2 % (0-2); HEMATOCRIT 30.6 % (36.0-47.0); HEMOGLOBIN 10.6 g/dL (12.0-15.5); LYMPHOCYTES % (AUTO) 9.1 % (13-45); MEAN CORPUSCULAR HEMOGLOBIN 28.2 pg (27.0-33.4); MEAN CORPUSCULAR HGB CONC 34.7 g/dL (32.0-36.0); MEAN CORPUSCULAR VOLUME 81 fl (80-97); RED BLOOD COUNT 3.77 10^6/uL (3.72-5.28); RED CELL DISTRIBUTION WIDTH 13.1 % (11.5-14.0); SEGMENTED NEUTROPHILS % (AUTO) 87.7 % (42-78); TOTAL CELLS COUNTED % (AUTO) 100 %; WHITE BLOOD COUNT 13.6 10^3/uL (4.0-10.5)
[2018-07-12] MEDS: WATER IV SCH ×3 (05:51→18:45)
[2018-07-12] MEDS: SULFAMETHOXAZOLE IV SCH ×3 (05:51→18:45)
[2018-07-12] MEDS: DEXTROSE 5% IV SCH ×3 (05:51→18:45)
[2018-07-12] MEDS: TRIMETHOPRIM IV SCH ×3 (05:51→18:45)
[2018-07-12] MEDS ORDERED: ONDANSETRON HCL INJ/PF 4 MG/2 ML SDV ONE ×2 (05:52→09:20)
[2018-07-12] MEDS ORDERED: ONDANSETRON HCL INJ/PF 4 MG/2 ML SDV IV ONE (06:00)
[2018-07-12] MEDS: KETOROLAC TROMETHAMINE INJ/PF 30 MG/1 ML SDV IV PRN ×2 (06:00→21:51)
[2018-07-12 06:06] LABS: ANION GAP 8 (5-19); BLOOD UREA NITROGEN 17 mg/dL (7-20); CALCIUM 7.1 mg/dL (8.4-10.2); CARBON DIOXIDE 23 mmol/L (22-30); CHLORIDE 110 mmol/L (98-107); GLUCOSE 82 mg/dL (75-110); SODIUM 141.3 mmol/L (137-145)
[2018-07-12 06:28] LABS: PLATELET COUNT 88 10^3/uL (150-450)
[2018-07-12 07:40] LABS: CHLAM PCR NOT DETECTED (NOT DETECT); GON PCR NOT DETECTED (NOT DETECT)
[2018-07-12] MEDS: IPRATROPIUM/ALBUTEROL 0.5-2.5 MG/3 ML AMPUL NEB SCH ×3 (08:19→20:06)
[2018-07-12] MEDS: ENOXAPARIN SODIUM INJ 40 MG/0.4 ML DISP.SYRIN SUBCUT SCH (09:19)
[2018-07-12] MEDS: FAMOTIDINE 20 MG TABLET PO SCH ×2 (09:19→21:46)
[2018-07-12] MEDS: AZITHROMYCIN 500 MG in DEXTROSE 5%-WATER 250 ML IV SCH (09:27)
[2018-07-12] MEDS ORDERED: LIDOCAINE 2% INJ-PF (20 MG/ML) 10 ML AMPUL ONE (10:19)
[2018-07-12] MEDS ORDERED: PROPOFOL INJ 200 MG/20 ML VIAL IV ONE (10:20)
[2018-07-12] MEDS ORDERED: FENTANYL CITRATE INJ/PF 100 MCG/2 ML AMPUL IV PRN ×3 (10:24)
[2018-07-12] MEDS ORDERED: PROMETHAZINE HCL INJ 25 MG/1 ML VIAL IV PRN ×2 (10:24)
[2018-07-12] MEDS ORDERED: DIPHENHYDRAMINE HCL 50 MG/ML VIAL IV PRN (10:24)
[2018-07-12] MEDS ORDERED: MEPERIDINE HCL/PF INJ 25 MG/1 ML DISP.SYRIN IV PRN (10:24)
--- NOTE | 2018-07-12 11:10 | Operative Report ---
Operative Report DATE OF SURGERY: 07/12/18 PREOPERATIVE DIAGNOSIS: 1. Abdominal pain. 2. Cough POSTOPERATIVE DIAGNOSIS: No significant pathology identified on upper endoscopy OPERATION: Esophagogastroduodenoscopy with random biopsy of antrum SURGEON: MO MARTÍNEZ ANESTHESIA: LMAC TISSUE REMOVED OR ALTERED: Biopsy gastric antrum COMPLICATIONS: None ESTIMATED BLOOD LOSS: Scant INTRAOPERATIVE FINDINGS: See below PROCEDURE: Patient was taken from the holding area to the isolation room outside of the main operating room at [place]. Appropriate isolation equipment implemented and protection of staff initiated. Surgical plan surgical timeout conducted. The patient was appropriately sedated by the change of address clerk. Oral mouthpiece was inserted. The flexible upper endoscope was advanced to the oropharynx, down the esophagus through the stomach into the duodenum. Good visualization of the first and second portions of the duodenum were achieved. There was no evidence of tumor stricture bleeding or polyp. The scope was brought back to the pylorus which was normal. Photographs taken. The stomach was visualized. There was no evidence of bleeding erythema etc. No evidence of retained gastric contents. A random biopsy of the gastric antrum chosen for DENNIS testing. Bleeding was minimal. The scope was retroflexed in the stomach. No significant hilar hernia. Scope was brought back through the GE junction. No significant pathology seen here. Scope was brought back to the esophagus. No evidence of esophagitis or stricture or varices. Scope was withdrawn with the patient oropharynx. SHe tolerated the procedure well. Impression: No upper gastrointestinal source for patient's abdominal pain Recommendations: Continue to pursue other sources of patient's abdominal pain; CT scan yesterday revealed no evidence of intra-abdominal pathology, however the study was limited due to absence of oral contrast. she has had a laparoscopic cholecystectomy in [facility] approximately 4 years ago
--- NOTE | 2018-07-12 11:58 | PDOC PROGRESS REPORT ---
Subjective Progress Note for:: 07/12/18 Subjective:: states she's still having epigastric pain and right sided pain in her chest, specially when she takes a deep breath. states it doesn't as much if she doesn't breath too deeply. otherwise she has no other complaints Reason For Visit: ACUTE RESPIRATORY FAILURE, PNEUMONIA Physical Exam Vital Signs: Temp Pulse Resp BP Pulse Ox 97.5 F 95 20 98/62 L 97 07/12/18 07:34 07/12/18 08:20 07/12/18 08:20 07/12/18 07:34 07/12/18 08:20 Intake & Output 07/11/18 07/12/18 07/13/18 06:59 06:59 06:59 Intake Total 3868.75 518.75 Balance 3868.75 518.75 Weight 192 lb 0.362 oz General appearance: PRESENT: no acute distress Head exam: PRESENT: atraumatic, normocephalic Eye exam: PRESENT: EOMI. ABSENT: conjunctival injection, scleral icterus Ear exam: PRESENT: normal external ear exam Mouth exam: PRESENT: dry mucosa, tongue midline Neck exam: ABSENT: tracheal deviation Respiratory exam: PRESENT: decreased breath sounds - decreased on the right side, rhonchi - right sided, symmetrical Cardiovascular exam: PRESENT: +S1, +S2 Pulses: PRESENT: +2 pedal pulses bilateral GI/Abdominal exam: PRESENT: normal bowel sounds, soft, tenderness - epigastric TTP Extremities exam: ABSENT: pedal edema Neurological exam: PRESENT: alert, awake, oriented to person, oriented to place, oriented to time, oriented to situation, CN II-XII grossly intact Skin exam: PRESENT: dry, warm Results Laboratory Results: 07/12/18 05:20 07/12/18 05:20 07/11/18 07/11/18 07/11/18 12:42 12:42 12:42 WBC 13.1 H RBC 4.29 Hgb 11.9 L Hct 35.2 L MCV 82 MCH 27.7 MCHC 33.8 RDW 12.8 Plt Count 119 L Seg Neutrophils % Not Reportable Lymphocytes % Not Reportable Monocytes % Not Reportable Eosinophils % Not Reportable Basophils % Not Reportable Absolute Neutrophils Not Reportable Absolute Lymphocytes Not Reportable Absolute Monocytes Not Reportable Absolute Eosinophils Not Reportable Absolute Basophils Not Reportable VBG pH VBG pCO2 VBG HCO3 VBG Base Excess Sodium 140.4 Potassium 3.7 Chloride 102 Carbon Dioxide 25 Anion Gap 13 BUN 16 Creatinine 0.93 Est GFR ( Amer) > 60 Est GFR (Non-Af Amer) > 60 Glucose 118 H Lactic Acid Calcium 8.4 Total Bilirubin 0.9 AST 71 H ALT 48 Alkaline Phosphatase 84 Total Protein 8.3 H Albumin 4.3 Triglycerides Cholesterol LDL Cholesterol Direct VLDL Cholesterol HDL Cholesterol Vitamin B12 Folate TSH Serum HCG, Qual NEGATIVE Urine Color Urine Appearance Urine pH Ur Specific [place] Urine Protein Urine Glucose (UA) Urine Ketones Urine Blood Urine Nitrite Ur Leukocyte Esterase Urine WBC (Auto) Urine RBC (Auto) Stool Occult Blood 07/11/18 07/11/18 07/11/18 15:09 15:28 16:15 WBC RBC Hgb Hct MCV MCH MCHC RDW Plt Count Seg Neutrophils % Lymphocytes % Monocytes % Eosinophils % Basophils % Absolute Neutrophils Absolute Lymphocytes Absolute Monocytes Absolute Eosinophils Absolute Basophils VBG pH 7.39 VBG pCO2 40.4 VBG HCO3 23.9 VBG Base Excess -1.0 Sodium Potassium Chloride Carbon Dioxide Anion Gap BUN Creatinine Est GFR ( Amer) Est GFR (Non-Af Amer) Glucose Lactic Acid 2.2 H Calcium Total Bilirubin AST ALT Alkaline Phosphatase Total Protein Albumin Triglycerides 54 Cholesterol 104.39 LDL Cholesterol Direct 61 VLDL Cholesterol 11.0 HDL Cholesterol 31 L Vitamin B12 221.0 L Folate 19.60 TSH Serum HCG, Qual Urine Color Urine Appearance Urine pH Ur Specific [place] Urine Protein Urine Glucose (UA) Urine Ketones Urine Blood Urine Nitrite Ur Leukocyte Esterase Urine WBC (Auto) Urine RBC (Auto) Stool Occult Blood 07/11/18 07/11/18 07/11/18 16:15 18:35 18:42 WBC RBC Hgb Hct MCV MCH MCHC RDW Plt Count Seg Neutrophils % Lymphocytes % Monocytes % Eosinophils % Basophils % Absolute Neutrophils Absolute Lymphocytes Absolute Monocytes Absolute Eosinophils Absolute Basophils VBG pH VBG pCO2 VBG HCO3 VBG Base Excess Sodium Potassium Chloride Carbon Dioxide Anion Gap BUN Creatinine Est GFR ( Amer) Est GFR (Non-Af Amer) Glucose Lactic Acid 1.7 Calcium Total Bilirubin AST ALT Alkaline Phosphatase Total Protein Albumin Triglycerides Cholesterol LDL Cholesterol Direct VLDL Cholesterol HDL Cholesterol Vitamin B12 Folate TSH 0.30 L Serum HCG, Qual Urine Color YELLOW Urine Appearance CLEAR Urine pH 6.0 Ur Specific [place] 1.046 Urine Protein NEGATIVE Urine Glucose (UA) NEGATIVE Urine Ketones NEGATIVE Urine Blood NEGATIVE Urine Nitrite NEGATIVE Ur Leukocyte Esterase NEGATIVE Urine WBC (Auto) 1 Urine RBC (Auto) 1 Stool Occult Blood 07/12/18 07/12/18 07/12/18 05:20 05:20 05:55 WBC 13.6 H RBC 3.77 Hgb 10.6 L Hct 30.6 L MCV 81 MCH 28.2 MCHC 34.7 RDW 13.1 Plt Count 88 L Seg Neutrophils % 87.7 H Lymphocytes % 9.1 L Monocytes % 3.0 Eosinophils % 0.0 Basophils % 0.2 Absolute Neutrophils 11.9 H Absolute Lymphocytes 1.2 Absolute Monocytes 0.4 Absolute Eosinophils 0.0 Absolute Basophils 0.0 VBG pH VBG pCO2 VBG HCO3 VBG Base Excess Sodium 141.3 Potassium 4.0 Chloride 110 H Carbon Dioxide 23 Anion Gap 8 BUN 17 Creatinine 0.71 Est GFR ( Amer) > 60 Est GFR (Non-Af Amer) > 60 Glucose 82 Lactic Acid Calcium 7.1 L Total Bilirubin AST ALT Alkaline Phosphatase Total Protein Albumin Triglycerides Cholesterol LDL Cholesterol Direct VLDL Cholesterol HDL Cholesterol Vitamin B12 Folate TSH Serum HCG, Qual Urine Color Urine Appearance Urine pH Ur Specific [place] Urine Protein Urine Glucose (UA) Urine Ketones Urine Blood Urine Nitrite Ur Leukocyte Esterase Urine WBC (Auto) Urine RBC (Auto) Stool Occult Blood NEGATIVE Impressions: Abdomen/Pelvis CT 07/11/18 13:09 IMPRESSION: Large consolidation of the dependent right upper lobe, likely infectious given rapid interval resolution compared chest radiograph dated 07/04/2018. IMPRESSION: Status post cholecystectomy. Hepatic steatosis. No CT findings to explain acute abdominal pain. Chest X-Ray 07/11/18 13:09 IMPRESSION: Heterogeneous opacity of the right upper lobe, possibly with a small associated effusion. Elevation of the right hemidiaphragm. Findings are concerning for infection and possibly underlying mass. Consider CT to further evaluate. At minimum recommend follow-up radiographs in 6 to 8 weeks to ensure complete resolution. Chest CT 07/11/18 14:18 IMPRESSION: Large consolidation of the dependent right upper lobe, likely infectious given rapid interval resolution compared chest radiograph dated 07/04/2018. IMPRESSION: Status post cholecystectomy. Hepatic steatosis. No CT findings to explain acute abdominal pain. Assessment & Plan - Diagnosis (1) Severe sepsis Is this a current diagnosis for this admission?: Yes (2) Asthma exacerbation Qualifiers: Asthma severity: unspecified severity Asthma persistence: unspecified Qualified Code(s): J45.901 - Unspecified asthma with (acute) exacerbation Is this a current diagnosis for this admission?: Yes (3) Epigastric abdominal tenderness Is this a current diagnosis for this admission?: Yes (4) History of HIV infection Is this a current diagnosis for this admission?: Yes (5) Right upper lobe pneumonia Qualifiers: Pneumonia type: due to unspecified organism Qualified Code(s): J18.1 - Lobar pneumonia, unspecified organism Is this a current diagnosis for this admission?: Yes (6) Hemoptysis Is this a current diagnosis for this admission?: Yes (7) Hypotension Is this a current diagnosis for this admission?: Yes (8) Acute respiratory failure with hypoxia Is this a current diagnosis for this admission?: Yes - Plan Summary Plan Summary: Severe sepsis-Lactic acid trended down- elevated heart rate, hypotensive, elevated WBC count and lactic acid. In the ED she received 1 dose of Levaquin and p.o. Bactrim. I called pharmacy and spoke to them about the fact that she may have HIV and now she has this right-sided consolidation suspicious for infectious causes. I am worried that if she has HIV that this organism might be pneumocystis versus Mycobacterium or other causes. At this time I was recommended by pharmacy to start IV azithromycin and IV Bactrim. Blood cultures are drawn and pending. I will also send for sputum cultures, fungal cultures. I have asked pharmacy to speak with ID about her case Right upper lobe pneumonia-plan above Asthma exacerbation-we will start her on DuoNeb every 6 hours and albuterol as needed. Epigastric tenderness-most likely related to reflux-we will start her on Pepcid twice daily. Acute respiratory failure w/ hypoxia- on NC 4L O2- likely 2/2 RUL PNA/consolidation. will wean to RA as tolerated Hemoptysis-better today. spoke with her today. she has cough, night sweats, RUL consolidation. concern for TB- placed in Airborne precautions. pending AFB. Hb stable. History of HIV-came back POSITIVE- final result pending- i have ordered PCR Qt also and pending. await viral load. GC/Chlamydia neg. TSH is Low- sent FT4 and pending. cultures pending. Hypotension-improving but still low normal- most likely secondary to severe sepsis-c/w IV NS@ 125 cc an hour and give fluid boluses as needed. Placed in IMCU for now. If she requires pressors then we will start when appropriate.
[2018-07-12] MEDS ORDERED: MORPHINE SULFATE 10 MG/ML INJ ONE (12:21)
[2018-07-12 12:46] LABS: FREE T3 2.12 pg/mL (2.77-5.27); FREE T4 (FREE THYROXINE) 1.5 ng/dL (0.78-2.19)
[2018-07-12] MEDS ORDERED: TUBERCULIN,PURIF.PROT.DERIV. 5 TU/0.1 ML TEST 1 ML VIAL ID ONE (13:00)
--- NOTE | 2018-07-12 16:23 | Progress Note ---
Provider Note Provider Note: ID Consult Note Asked by Dr Bennett to review patient's chart. Pt not seen or examined. Ms. Gonzalez is a 32 year old obese woman with PMH/PSH including asthma, s/p cholecystectomy, possible GERD, and HIV, originally diagnosed in 2007 but for which she does not take any medications. She presented to the ED yesterday 07/11/18 with c/o SOB for a few weeks, cough for a month, acute onset of pleuritic R sided CP, and epigastric pain that had been ongoing for a while. Change in cough to include a small amount of blood prompted her presentation. Pt was found to be hypotensive, tachycardic, tachypneic, and febrile to 102.7 F. On exam, she was noted to have accessory muscle use, decreased breath sounds and poor inspiratory effort, although in ED she also had rhonchi R lower lobe. Abdomen was noted to be soft with epigastric tenderness. Labs were notable for leukocytosis of 13, mild anemia, mild thrombocytopenia, elevated lactate. Imaging: RUQ US had no biliary ductal dilitation. CXR AP with heterogenous RUL opacity. CT chest/abd/pelvis with IV contrast showed large consolidation of dependent RUL, hepatic steatosis, no intraabdominal acute process to explain pain. Pt underwent EGD with no significant pathology identified. Microbiology: BCx sent on 07/11, pending. U/A 1 wbc/hpf, no leukocyte esterase, UCx mixed urogenital steve. Sputum Gram stain and culture also sent, pending. Empirically, pt is being treated with azithromycin and IV Bactrim. Pt has been on 2-4 L O2, with O2 sats ranging from 89-100%. HIV antibody testing is reactive. Impression/Recommendations 1. Pneumonia - This might be pneumococcal pneumonia with acute onset of fever and a lobar consolidation. HIV increases risk for pneumococcal disease. Appearance of infiltrate not typical of PJP or TB, although unusual radiographic presentations may occur. If pt has purulent sputum. this would also favor a typical bacterial cause of pneumonia over PJP. - Follow blood and sputum culture results. - Recommend adding Rocephin 2 g daily IV given the reasonably high rates of macrolide resistance in Strep pneumo. 2. R/O Pneumocystis pneumonia - Appearance of infiltrate is not particularly suggestive of PJP. Bilateral diffuse interstitial infiltrate or ground-glass opacities would be more typical for PJP. The clinical history of cough for a month is potentially compatible with PJP but also confounded also by asthma history. - If presentation is acute and supportive of pneumococcal pneumonia or diagnosis of pneumococcal pneumonia is established with sputum and BCx, then stop Bactrim and continue CAP treatment. - However, if clinical history is that of a more insidious, subacute illness... Consider Pulmonology consultation to help rule out PJP. Although diagnosis of PJP is sometimes made presumptively, efforts to find a specific pathogen should be made whenever possible to avoid incorrect diagnosis and inappropriate therapy. The gold standard for diagnosis is identification of organism on stain of respiratory secretions or tissue, and generally bronchoscopy with BAL is required for this. Induced sputum tends to have poor yield outside of specialized institutions. - Can also check LDH, although usefulness is limited. LDH lacks specificity, but if normal, it would argue against PJP. If LDH is elevated, it may not be helpful; LDH can be increased in other lung infections or other extrapulmonary disorders. 3. HIV - If pt has had HIV since 2007 without treatment, she may have had progression to AIDS. How low CD4 count is helps stratify what opportunistic infections she might be at greatest risk for - If pt has had been in care for HIV in [place] obtaining those records would be helpful for prior treatment history and recent CD4 count - Check CD4 count and percentage, HIV viral load, HIV genotype - Do not recommend starting antiretroviral therapy during her hospitalization. If she lacks the means to continue these medications as an outpatient, antiretroviral therapy as an inpatient in the short term does not benefit pt. Polo Miguel MD [facility] pager [phone]
[2018-07-12] MEDS: ONDANSETRON HCL INJ/PF 4 MG/2 ML SDV IV PRN (16:47)
[2018-07-12] MEDS: ACETAMINOPHEN 325 MG TABLET PO PRN (23:59)
[2018-07-13] MEDS: ONDANSETRON HCL INJ/PF 4 MG/2 ML SDV IV PRN ×4 (00:53→20:45)
[2018-07-13] MEDS: DEXTROSE 5% IV SCH ×6 (05:01→23:19)
[2018-07-13] MEDS: SULFAMETHOXAZOLE IV SCH ×6 (05:01→23:19)
[2018-07-13] MEDS: TRIMETHOPRIM IV SCH ×6 (05:01→23:19)
[2018-07-13] MEDS: WATER IV SCH ×6 (05:01→23:19)
[2018-07-13] MEDS: IPRATROPIUM/ALBUTEROL 0.5-2.5 MG/3 ML AMPUL NEB SCH ×3 (08:43→20:50)
[2018-07-13] MEDS: ENOXAPARIN SODIUM INJ 40 MG/0.4 ML DISP.SYRIN SUBCUT SCH (09:01)
[2018-07-13] MEDS: FAMOTIDINE 20 MG TABLET PO SCH ×2 (09:12→21:00)
[2018-07-13] MEDS: AZITHROMYCIN 500 MG in DEXTROSE 5%-WATER 250 ML IV SCH (09:12)
[2018-07-13 09:40] LABS: HEPATITIS A AB IGM Negative (Negative); HEPATITIS B CORE AB IGM Negative (Negative); HEPATITS B SURFACE ANTIGEN Negative (Negative)
[2018-07-13 09:54] LABS: HEPATITIS C VIRUS ANTIBODY 0.2 s/co ratio (0.0-0.9)
[2018-07-13] MEDS: MORPHINE SULFATE 10 MG/ML INJ IV PRN ×2 (14:11→20:50)
[2018-07-13] MEDS ORDERED: PROMETHAZINE HCL 25 MG SUPP.RECT PR PRN (21:47)
--- NOTE | 2018-07-13 22:04 | PDOC PROGRESS REPORT ---
Subjective Progress Note for:: 07/13/18 Subjective:: The patient is still feeling quite poorly. She still has a lot of pain. The nausea and vomiting is not helped with Zofran. Reason For Visit: ACUTE RESPIRATORY FAILURE, PNEUMONIA Physical Exam Vital Signs: Temp Pulse Resp BP Pulse Ox 98.3 F 91 22 H 107/64 98 07/13/18 20:29 07/13/18 20:29 07/13/18 20:29 07/13/18 20:29 07/13/18 20:29 Intake & Output 07/12/18 07/13/18 07/14/18 06:59 06:59 06:59 Intake Total 3868.75 3240.00 1737.50 Output Total 800 1300 Balance 3868.75 2440.00 437.50 Weight 87.1 kg 87.8 kg General appearance: PRESENT: cooperative, severe distress Head exam: PRESENT: normocephalic Mouth exam: PRESENT: moist Respiratory exam: PRESENT: decreased breath sounds - On the right, symmetrical, wheezes - Intermittent Cardiovascular exam: PRESENT: RRR, +S1, +S2 GI/Abdominal exam: PRESENT: normal bowel sounds, soft. ABSENT: distended, tenderness Extremities exam: ABSENT: pedal edema Neurological exam: PRESENT: alert, awake, oriented to person, oriented to place, oriented to situation Psychiatric exam: PRESENT: other - Affect reflects her current discomfort Results Laboratory Results: 07/12/18 05:20 07/12/18 05:20 Impressions: Abdomen/Pelvis CT 07/11/18 13:09 IMPRESSION: Large consolidation of the dependent right upper lobe, likely infectious given rapid interval resolution compared chest radiograph dated 07/04/2018. IMPRESSION: Status post cholecystectomy. Hepatic steatosis. No CT findings to explain acute abdominal pain. Chest X-Ray 07/11/18 13:09 IMPRESSION: Heterogeneous opacity of the right upper lobe, possibly with a small associated effusion. Elevation of the right hemidiaphragm. Findings are concerning for infection and possibly underlying mass. Consider CT to further evaluate. At minimum recommend follow-up radiographs in 6 to 8 weeks to ensure complete resolution. Chest CT 07/11/18 14:18 IMPRESSION: Large consolidation of the dependent right upper lobe, likely infectious given rapid interval resolution compared chest radiograph dated 07/04/2018. IMPRESSION: Status post cholecystectomy. Hepatic steatosis. No CT findings to explain acute abdominal pain. Assessment & Plan - Diagnosis (1) Acute respiratory failure with hypoxia Is this a current diagnosis for this admission?: Yes Plan: Reviewed the note from infectious diseases. I have added Rocephin [address] Bravo is consulting. Please also see pulmonology note. (2) Right upper lobe pneumonia Qualifiers: Pneumonia type: due to unspecified organism Qualified Code(s): J18.1 - Lobar pneumonia, unspecified organism Is this a current diagnosis for this admission?: Yes Plan: As noted above the patient continues on Bactrim, azithromycin and Rocephin. She is also receiving nebulizer treatments. No steroid therapy at this point. (3) Asthma exacerbation Qualifiers: Asthma severity: severe Is this a current diagnosis for this admission?: Yes Plan: As above (4) Epigastric abdominal tenderness Is this a current diagnosis for this admission?: Yes Plan: Await results of the gastroscopy. No obvious pathology noted. The patient still continues with nausea and vomiting. Phenergan has been ordered. (5) Hemoptysis Is this a current diagnosis for this admission?: Yes Plan: The patient reports hemoptysis. Continue to monitor hemoglobin. Please also see pulmonology note. (6) Hypotension Qualifiers: Hypotension type: other hypotension type Qualified Code(s): I95.89 - Other hypotension Is this a current diagnosis for this admission?: Yes Plan: Hypotension likely induced by sepsis. The sepsis is improving. Continue to monitor blood pressure. Currently continuing intravenous fluid. (7) Severe sepsis Is this a current diagnosis for this admission?: Yes Plan: Definitely improved with fluids, antibiotic therapy and respiratory treatments. (8) History of HIV infection Is this a current diagnosis for this admission?: Yes Plan: Appreciate Dr. Miguel's input. I have ordered a CD4 count per her recommendati on. - Time Time Spent with patient: 35 or more minutes Medications reviewed and adjusted accordingly: Yes
[2018-07-13] MEDS: PROMETHAZINE HCL 25 MG TABLET PO PRN (23:18)
[2018-07-14] MEDS: SULFAMETHOXAZOLE IV SCH ×3 (05:06→18:04)
[2018-07-14] MEDS: TRIMETHOPRIM IV SCH ×3 (05:06→18:04)
[2018-07-14] MEDS: DEXTROSE 5% IV SCH ×3 (05:06→18:04)
[2018-07-14] MEDS: WATER IV SCH ×3 (05:06→18:04)
[2018-07-14 06:41] LABS: ABSOLUTE LYMPHOCYTES (AUTO) 0.9 10^3/uL (0.5-4.7); ABSOLUTE MONOCYTES (AUTO) 0.3 10^3/uL (0.1-1.4); ABSOLUTE NEUT (AUTO) 3.4 10^3/uL (1.7-8.2); BASOPHILS % (AUTO) 0.1 % (0-2); EOSINOPHILS % (AUTO) 0.3 % (0-6); HEMATOCRIT 26.7 % (36.0-47.0); HEMOGLOBIN 9.4 g/dL (12.0-15.5); LYMPHOCYTES % (AUTO) 18.9 % (13-45); MEAN CORPUSCULAR HGB CONC 35.2 g/dL (32.0-36.0); MEAN CORPUSCULAR VOLUME 82 fl (80-97); PLATELET COUNT 109 10^3/uL (150-450); RED BLOOD COUNT 3.24 10^6/uL (3.72-5.28); RED CELL DISTRIBUTION WIDTH 13.5 % (11.5-14.0); SEGMENTED NEUTROPHILS % (AUTO) 74.7 % (42-78); TOTAL CELLS COUNTED % (AUTO) 100 %; WHITE BLOOD COUNT 4.5 10^3/uL (4.0-10.5)
[2018-07-14 06:53] LABS: ANION GAP 10 (5-19); BLOOD UREA NITROGEN 4 mg/dL (7-20); CALCIUM 7.7 mg/dL (8.4-10.2); CARBON DIOXIDE 23 mmol/L (22-30); CHLORIDE 109 mmol/L (98-107); GLUCOSE 80 mg/dL (75-110); POTASSIUM 3.2 mmol/L (3.6-5.0); SODIUM 141.7 mmol/L (137-145)
[2018-07-14] MEDS: IPRATROPIUM/ALBUTEROL 0.5-2.5 MG/3 ML AMPUL NEB SCH ×3 (08:46→21:33)
[2018-07-14] MEDS: ENOXAPARIN SODIUM INJ 40 MG/0.4 ML DISP.SYRIN SUBCUT SCH (09:38)
[2018-07-14] MEDS: FAMOTIDINE 20 MG TABLET PO SCH ×2 (09:42→22:02)
[2018-07-14] MEDS: KETOROLAC TROMETHAMINE INJ/PF 30 MG/1 ML SDV IV PRN ×2 (09:43→22:23)
[2018-07-14] MEDS: ONDANSETRON HCL INJ/PF 4 MG/2 ML SDV IV PRN (09:43)
[2018-07-14] MEDS: CEFTRIAXONE 2 GM/D5W RTU 2 GM/50 ML RTUPB IV SCH (09:44)
[2018-07-14] MEDS: AZITHROMYCIN 500 MG in DEXTROSE 5%-WATER 250 ML IV SCH (09:44)
[2018-07-14] MEDS: PROMETHAZINE HCL 25 MG TABLET PO PRN (18:07)
[2018-07-14] MEDS ORDERED: GUAIFENESIN/D-METHORPHAN (200-20 MG) SYRUP 10 ML PO PRN (20:31)
[2018-07-14] MEDS ORDERED: PSEUDOEPHEDRINE HCL 30 MG TABLET PO PRN (20:34)
--- NOTE | 2018-07-14 20:41 | PDOC PROGRESS REPORT ---
Subjective Progress Note for:: 07/14/18 Subjective:: Patient reports not feeling much better. Still with congestion both upper airway and nasal. She reports that it feels like mucus is getting stuck in the back of her throat. Reason For Visit: ACUTE RESPIRATORY FAILURE, PNEUMONIA Physical Exam Vital Signs: Temp Pulse Resp BP Pulse Ox 98.1 F 78 18 100/60 97 07/14/18 15:20 07/14/18 15:20 07/14/18 15:20 07/14/18 15:20 07/14/18 15:20 Intake & Output 07/13/18 07/14/18 07/15/18 06:59 06:59 06:59 Intake Total 3240.00 3225.00 1337.50 Output Total 800 2700 Balance 2440.00 525.00 1337.50 Weight 87.8 kg 88.9 kg General appearance: PRESENT: cooperative, mild distress Mouth exam: PRESENT: dry mucosa Respiratory exam: PRESENT: decreased breath sounds, rhonchi - Faint rhonchi on the right, symmetrical, wheezes - Occasional sporadic wheeze. ABSENT: accessory muscle use, rales Cardiovascular exam: PRESENT: RRR, +S1, +S2 GI/Abdominal exam: PRESENT: normal bowel sounds, soft. ABSENT: distended, tenderness Extremities exam: ABSENT: pedal edema Neurological exam: PRESENT: alert, awake, oriented to person, oriented to place, oriented to situation Psychiatric exam: PRESENT: anxious, flat affect. ABSENT: agitated Focused psych exam: ABSENT: restlessness Results Laboratory Results: 07/14/18 06:13 07/14/18 06:13 07/14/18 07/14/18 06:13 06:13 WBC 4.5 RBC 3.24 L Hgb 9.4 L Hct 26.7 L MCV 82 MCH 29.0 MCHC 35.2 RDW 13.5 Plt Count 109 L Seg Neutrophils % 74.7 Lymphocytes % 18.9 Monocytes % 6.0 Eosinophils % 0.3 Basophils % 0.1 Absolute Neutrophils 3.4 Absolute Lymphocytes 0.9 Absolute Monocytes 0.3 Absolute Eosinophils 0.0 Absolute Basophils 0.0 Sodium 141.7 Potassium 3.2 L Chloride 109 H Carbon Dioxide 23 Anion Gap 10 BUN 4 L Creatinine 0.69 Est GFR ( Amer) > 60 Est GFR (Non-Af Amer) > 60 Glucose 80 Calcium 7.7 L Magnesium 1.9 07/11/18 20:45 Sputum Gram Stain - Final 07/11/18 20:45 Sputum Sputum Culture - Final Haemophilus Influenzae Normal [place] Impressions: Abdomen/Pelvis CT 07/11/18 13:09 IMPRESSION: Large consolidation of the dependent right upper lobe, likely infectious given rapid interval resolution compared chest radiograph dated 07/04/2018. IMPRESSION: Status post cholecystectomy. Hepatic steatosis. No CT findings to explain acute abdominal pain. Chest X-Ray 07/11/18 13:09 IMPRESSION: Heterogeneous opacity of the right upper lobe, possibly with a small associated effusion. Elevation of the right hemidiaphragm. Findings are concerning for infection and possibly underlying mass. Consider CT to further evaluate. At minimum recommend follow-up radiographs in 6 to 8 weeks to ensure complete resolution. Chest CT 07/11/18 14:18 IMPRESSION: Large consolidation of the dependent right upper lobe, likely infectious given rapid interval resolution compared chest radiograph dated 07/04/2018. IMPRESSION: Status post cholecystectomy. Hepatic steatosis. No CT findings to explain acute abdominal pain. Assessment & Plan - Diagnosis (1) Acute respiratory failure with hypoxia Is this a current diagnosis for this admission?: Yes Plan: Still requires oxygen supplementation by nasal cannula. Continue nebulizer treatments as ordered. Guaifenesin and guaifenesin with dextromethorphan have been ordered. (2) Right upper lobe pneumonia Qualifiers: Pneumonia type: due to Haemophilus influenzae Qualified Code(s): J14 - Pneumonia due to Hemophilus influenzae Is this a current diagnosis for this admission?: Yes Plan: Haemophilus influenza has been identified however we have not ruled out other sources. AFB smears x2 have been submitted but the results are pending. Her initial PPD is negative. Continue current antibiotic regimen until other entities have been ruled out. (3) Asthma exacerbation Qualifiers: Asthma severity: severe Is this a current diagnosis for this admission?: Yes Plan: Nebulizers as above. Trying to avoid use of steroids with an immunocompromised patient. (4) Epigastric abdominal tenderness Is this a current diagnosis for this admission?: Yes (5) Hemoptysis Is this a current diagnosis for this admission?: Yes (6) Hypotension Qualifiers: Hypotension type: other hypotension type Qualified Code(s): I95.89 - Other hypotension Is this a current diagnosis for this admission?: Yes (7) Severe sepsis Is this a current diagnosis for this admission?: Yes (8) History of HIV infection Is this a current diagnosis for this admission?: Yes - Time Time Spent with patient: 25-34 minutes Medications reviewed and adjusted accordingly: Yes
[2018-07-14] MEDS: POTASSI CL 20 MEQ/50 ML RIDER 20 MEQ/50 ML RTUPB IV SCH (22:06)
[2018-07-14] MEDS: FLUTICASONE NASAL SPRAY 50 MCG/SPRY 120 SPRAY/16 GM NASL SCH (22:08)
[2018-07-14] MEDS: GUAIFENESIN 600 MG TABLET.SA PO SCH (22:09)
[2018-07-15] MEDS: WATER IV SCH ×4 (00:17→19:28)
[2018-07-15] MEDS: TRIMETHOPRIM IV SCH ×4 (00:17→19:28)
[2018-07-15] MEDS: SULFAMETHOXAZOLE IV SCH ×4 (00:17→19:28)
[2018-07-15] MEDS: DEXTROSE 5% IV SCH ×4 (00:17→19:28)
[2018-07-15] MEDS: POTASSI CL 20 MEQ/50 ML RIDER 20 MEQ/50 ML RTUPB IV SCH (00:20)
[2018-07-15] MEDS: LEVOTHYROXINE SODIUM 0.025 MG TABLET PO SCH (06:08)
[2018-07-15 07:05] LABS: HIV-1 RNA LOG10.. 5.879 (.); HIV-1 RNA PCR QUANT 756000 copies/mL (.)
[2018-07-15] MEDS: IPRATROPIUM/ALBUTEROL 0.5-2.5 MG/3 ML AMPUL NEB SCH ×3 (08:37→20:53)
[2018-07-15] MEDS: PROMETHAZINE HCL 25 MG TABLET PO PRN (10:22)
[2018-07-15] MEDS: POTASSIUM CHLORIDE 10 MEQ CAPSULE.ER PO SCH (10:22)
[2018-07-15] MEDS: KETOROLAC TROMETHAMINE INJ/PF 30 MG/1 ML SDV IV PRN (10:23)
[2018-07-15] MEDS: AZITHROMYCIN 500 MG in DEXTROSE 5%-WATER 250 ML IV SCH (10:23)
[2018-07-15] MEDS: CEFTRIAXONE 2 GM/D5W RTU 2 GM/50 ML RTUPB IV SCH (10:23)
[2018-07-15] MEDS: GUAIFENESIN 600 MG TABLET.SA PO SCH ×2 (10:23→21:26)
[2018-07-15] MEDS: FAMOTIDINE 20 MG TABLET PO SCH ×2 (10:23→21:26)
[2018-07-15] MEDS: ENOXAPARIN SODIUM INJ 40 MG/0.4 ML DISP.SYRIN SUBCUT SCH (10:29)
[2018-07-15] MEDS: FLUTICASONE NASAL SPRAY 50 MCG/SPRY 120 SPRAY/16 GM NASL SCH ×2 (10:44→21:26)
[2018-07-15 14:39] LABS: % CD 4 POS LYMPH 7.2 % (30.8-58.5); % CD 8 POS LYMPH 76.8 % (12.0-35.5); ABSOLUTE CD 4 HELPER 65 /uL (359-1519); ABSOLUTE CD 8 SUPPRESSOR 691 /uL (109-897); CD BASOPHILS 0 % (Not Estab.); CD EOSINOPHILS 0 % (Not Estab.); CD MONOCYTES 7 % (Not Estab.); CD NEUTROPHILS 73 % (Not Estab.); CD4/CD8 RATIO 0.09 (0.92-3.72); HEMOGLOBIN 9.4 g/dL (11.1-15.9); IMMATURE GRANULOCYTES 1 % (Not Estab.); LYMPHS(ABSOLUTE) 0.9 x10E3/uL (0.7-3.1); MCH 28.1 pg (26.6-33.0); MCHC 34.1 g/dL (31.5-35.7); MCV 83 fL (79-97); MONOCYTES(ABSOLUTE) 0.3 x10E3/uL (0.1-0.9); NEUTROPHILS(ABSOLUTE) 3.3 x10E3/uL (1.4-7.0); PLATELETS 131 x10E3/uL (150-379); RBC 3.34 x10E6/uL (3.77-5.28); RDW 13.3 % (12.3-15.4); WBC 4.6 x10E3/uL (3.4-10.8)
--- NOTE | 2018-07-15 21:57 | PDOC PROGRESS REPORT ---
Subjective Progress Note for:: 07/15/18 Subjective:: The patient appears to be significantly better today Reason For Visit: ACUTE RESPIRATORY FAILURE, PNEUMONIA Physical Exam Vital Signs: Temp Pulse Resp BP Pulse Ox 98.0 F 82 17 127/75 H 96 07/15/18 19:59 07/15/18 19:59 07/15/18 19:59 07/15/18 19:59 07/15/18 19:59 Intake & Output 07/14/18 07/15/18 07/16/18 06:59 06:59 06:59 Intake Total 3225.00 2470.00 1737.50 Output Total 2700 1100 Balance 525.00 1370.00 1737.50 Weight 88.9 kg 88.5 kg General appearance: PRESENT: no acute distress Respiratory exam: PRESENT: clear to auscultation diego. ABSENT: rales, rhonchi, wheezes Cardiovascular exam: PRESENT: RRR, +S1, +S2 GI/Abdominal exam: PRESENT: normal bowel sounds, soft. ABSENT: tenderness Neurological exam: PRESENT: alert, awake, oriented to person, oriented to place, oriented to situation Psychiatric exam: PRESENT: anxious Results Laboratory Results: 07/14/18 06:13 07/14/18 06:13 07/11/18 20:45 Sputum Gram Stain - Final 07/11/18 20:45 Sputum Sputum Culture - Final Haemophilus Influenzae Normal [place] Impressions: Abdomen/Pelvis CT 07/11/18 13:09 IMPRESSION: Large consolidation of the dependent right upper lobe, likely infectious given rapid interval resolution compared chest radiograph dated 07/04/2018. IMPRESSION: Status post cholecystectomy. Hepatic steatosis. No CT findings to explain acute abdominal pain. Chest X-Ray 07/11/18 13:09 IMPRESSION: Heterogeneous opacity of the right upper lobe, possibly with a small associated effusion. Elevation of the right hemidiaphragm. Findings are concerning for infection and possibly underlying mass. Consider CT to further evaluate. At minimum recommend follow-up radiographs in 6 to 8 weeks to ensure complete resolution. Chest CT 07/11/18 14:18 IMPRESSION: Large consolidation of the dependent right upper lobe, likely infectious given rapid interval resolution compared chest radiograph dated 07/04/2018. IMPRESSION: Status post cholecystectomy. Hepatic steatosis. No CT findings to explain acute abdominal pain. Assessment & Plan - Diagnosis (1) Acute respiratory failure with hypoxia Is this a current diagnosis for this admission?: Yes Plan: Resolved. Patient is now on room air. (2) Right upper lobe pneumonia Qualifiers: Pneumonia type: due to Haemophilus influenzae Qualified Code(s): J14 - Pneumonia due to Hemophilus influenzae Is this a current diagnosis for this admission?: Yes Plan: Extensive workup. So far PPD is negative. The first acid-fast smear was n egative. Multiple studies still pending. (3) Asthma exacerbation Qualifiers: Asthma severity: severe Is this a current diagnosis for this admission?: Yes Plan: Resolved. Continue current medications. (4) Epigastric abdominal tenderness Is this a current diagnosis for this admission?: Yes Plan: Resolved (5) Hemoptysis Is this a current diagnosis for this admission?: Yes Plan: Resolved (6) Hypotension Qualifiers: Hypotension type: other hypotension type Qualified Code(s): I95.89 - Other hypotension Is this a current diagnosis for this admission?: Yes Plan: Improved (7) Severe sepsis Is this a current diagnosis for this admission?: Yes Plan: Resolved (8) History of HIV infection Is this a current diagnosis for this admission?: Yes Plan: CD4 count pending - Time Time Spent with patient: 15-24 minutes Medications reviewed and adjusted accordingly: Yes Anticipated discharge: Home
[2018-07-15] MEDS: ACETAMINOPHEN 325 MG TABLET PO PRN (23:51)
[2018-07-16] MEDS: SULFAMETHOXAZOLE IV SCH ×5 (02:29→22:28)
[2018-07-16] MEDS: DEXTROSE 5% IV SCH ×5 (02:29→22:28)
[2018-07-16] MEDS: TRIMETHOPRIM IV SCH ×5 (02:29→22:28)
[2018-07-16] MEDS: WATER IV SCH ×5 (02:29→22:28)
[2018-07-16] MEDS: LEVOTHYROXINE SODIUM 0.025 MG TABLET PO SCH (05:11)
[2018-07-16] MEDS: IPRATROPIUM/ALBUTEROL 0.5-2.5 MG/3 ML AMPUL NEB SCH ×3 (08:31→21:15)
[2018-07-16] MEDS: AZITHROMYCIN 500 MG in DEXTROSE 5%-WATER 250 ML IV SCH (10:04)
[2018-07-16] MEDS: POTASSIUM CHLORIDE 10 MEQ CAPSULE.ER PO SCH (10:04)
[2018-07-16] MEDS: FAMOTIDINE 20 MG TABLET PO SCH ×2 (10:05→21:21)
[2018-07-16] MEDS: ENOXAPARIN SODIUM INJ 40 MG/0.4 ML DISP.SYRIN SUBCUT SCH (10:05)
[2018-07-16] MEDS: GUAIFENESIN 600 MG TABLET.SA PO SCH ×2 (10:05→21:21)
[2018-07-16] MEDS: FLUTICASONE NASAL SPRAY 50 MCG/SPRY 120 SPRAY/16 GM NASL SCH ×2 (10:05→21:21)
[2018-07-16] MEDS: CEFTRIAXONE 2 GM/D5W RTU 2 GM/50 ML RTUPB IV SCH (14:08)
--- NOTE | 2018-07-16 16:37 | Progress Note ---
Provider Note Provider Note: ID Consult Note Asked to review chart by Dr Harkins and discussed case briefly via telephone. Pt not seen or examined. Ms Gonzalez was admitted on 07/11/18 with SOB, fever. Diagnosed with pneumonia with lobar consolidation. Sputum yielded growth of Haemophilus influenzae, beta lactamase negative. Pt readily defervesced. She has been on treatment dose of Bactrim since pneumocystis pneumonia had been a consideration, as well as recommended empiric community acquired bacterial pneumonia treatment with azithromycin and Rocephin. Pt reports feeling significantly better at this point. Impression/Recommendations lobar pneumonia due to Haemophilus influenzae - Pt had Haemophilus influenzae, beta lactamase negative, found in her sputum. Today is day 5 of treatment. - I do not think she likely to have active pulmonary TB. She has an alterantive etiology for her lung infiltrate and fever. She had one AFB smear that was negative. Pt improved on treatment that is not active against TB. If she is otherwise ready for discharge, she could go home with Amoxil 500 mg TID for another 2 days to finish a 7 day course. AIDS - Pt has CD4 count 65 (CD4 7%), HIV viral load 756,000. - With lobar consolidation, this does not appear to be pneumocystis pneumonia. I do not think she needs treatment dose of Bactrim. But she will need to continue Bactrim 1 DS daily PO as prophylaxis until she can have improvement in CD4 count consistently over 200 on antiretroviral therapy. - She needs to establish care as an outpatient with an ID clinic for further management of her HIV/AIDS. A [facility] funded clinic would be able to see her even though she is uninsured. [place] is probably the closest to her if she is going to remain in the [place], [place], area. Polo Miguel MD [facility] Infectious Diseases pager [phone]
--- NOTE | 2018-07-16 20:22 | PDOC PROGRESS REPORT ---
Subjective Progress Note for:: 07/16/18 Subjective:: Resting comfortably. Worried about her family's trip to [place]. Reason For Visit: ACUTE RESPIRATORY FAILURE, PNEUMONIA Physical Exam Vital Signs: Temp Pulse Resp BP Pulse Ox 97.8 F 58 L 12 133/87 H 95 07/16/18 07:57 07/16/18 14:00 07/16/18 08:30 07/16/18 07:57 07/16/18 08:30 Intake & Output 07/15/18 07/16/18 07/17/18 06:59 06:59 06:59 Intake Total 2470.00 2554.25 2855.50 Output Total 1100 Balance 1370.00 2554.25 2855.50 Weight 88.5 kg 86.9 kg General appearance: PRESENT: no acute distress, cooperative Respiratory exam: PRESENT: clear to auscultation diego, symmetrical, unlabored. ABSENT: rales, rhonchi, wheezes Cardiovascular exam: PRESENT: RRR, +S1, +S2 GI/Abdominal exam: PRESENT: normal bowel sounds, soft. ABSENT: tenderness Extremities exam: ABSENT: pedal edema Neurological exam: PRESENT: alert, awake, oriented to person, oriented to place, oriented to situation Psychiatric exam: PRESENT: anxious Results Laboratory Results: 07/14/18 06:13 07/14/18 06:13 07/11/18 16:15 Blood Blood Culture - Final NO GROWTH IN 5 DAYS 07/11/18 15:28 Blood Blood Culture - Final NO GROWTH IN 5 DAYS 07/13/18 00:47 Sputum Fungal Smear - Final 07/13/18 00:47 Sputum Fungal Smear - Final 07/13/18 00:47 Sputum AFB Smear Concentration - Final 07/13/18 00:47 Sputum Acid Fast Bacilli Smear - Final 07/16/18 07/16/18 14:55 14:55 Creatine Kinase 31 Troponin I < 0.012 Impressions: Abdomen/Pelvis CT 07/11/18 13:09 IMPRESSION: Large consolidation of the dependent right upper lobe, likely infectious given rapid interval resolution compared chest radiograph dated 07/04/2018. IMPRESSION: Status post cholecystectomy. Hepatic steatosis. No CT findings to explain acute abdominal pain. Chest X-Ray 07/11/18 13:09 IMPRESSION: Heterogeneous opacity of the right upper lobe, possibly with a small associated effusion. Elevation of the right hemidiaphragm. Findings are concerning for infection and possibly underlying mass. Consider CT to further evaluate. At minimum recommend follow-up radiographs in 6 to 8 weeks to ensure complete resolution. Chest CT 07/11/18 14:18 IMPRESSION: Large consolidation of the dependent right upper lobe, likely infectious given rapid interval resolution compared chest radiograph dated 07/04/2018. IMPRESSION: Status post cholecystectomy. Hepatic steatosis. No CT findings to explain acute abdominal pain. Assessment & Plan - Diagnosis (1) Acute respiratory failure with hypoxia Is this a current diagnosis for this admission?: Yes Plan: Now on room air (2) Right upper lobe pneumonia Qualifiers: Pneumonia type: due to Haemophilus influenzae Qualified Code(s): J14 - Pneumonia due to Hemophilus influenzae Is this a current diagnosis for this admission?: Yes Plan: Multiple discussions with Dr. Miguel of infectious diseases at [facility]. Please see Dr. Miguel's note as well. If the PPD tests are in fact negative it is unlikely that this is a mycobacterial pneumonia. Haemophilus was cultured. The patient is improved and I will likely discharge tomorrow. (3) Asthma exacerbation Qualifiers: Asthma severity: severe Is this a current diagnosis for this admission?: Yes Plan: Resolved. Continue current medications. (4) Epigastric abdominal tenderness Is this a current diagnosis for this admission?: Yes Plan: Resolved (5) Hemoptysis Is this a current diagnosis for this admission?: Yes Plan: Resolved (6) Hypotension Qualifiers: Hypotension type: other hypotension type Qualified Code(s): I95.89 - Other hypotension Is this a current diagnosis for this admission?: Yes Plan: Improved (7) Severe sepsis Is this a current diagnosis for this admission?: Yes Plan: Resolved (8) History of HIV infection Is this a current diagnosis for this admission?: Yes Plan: CD4 count pending - Time Time Spent with patient: 25-34 minutes Medications reviewed and adjusted accordingly: Yes
[2018-07-17] MEDS: SULFAMETHOXAZOLE IV SCH ×3 (02:44→15:25)
[2018-07-17] MEDS: DEXTROSE 5% IV SCH ×3 (02:44→15:25)
[2018-07-17] MEDS: WATER IV SCH ×3 (02:44→15:25)
[2018-07-17] MEDS: TRIMETHOPRIM IV SCH ×3 (02:44→15:25)
[2018-07-17] MEDS: LEVOTHYROXINE SODIUM 0.025 MG TABLET PO SCH (05:54)
[2018-07-17] MEDS: POTASSIUM CHLORIDE 10 MEQ CAPSULE.ER PO SCH (08:59)
[2018-07-17] MEDS: GUAIFENESIN 600 MG TABLET.SA PO SCH ×2 (08:59→22:11)
[2018-07-17] MEDS: ENOXAPARIN SODIUM INJ 40 MG/0.4 ML DISP.SYRIN SUBCUT SCH (08:59)
[2018-07-17] MEDS: FLUTICASONE NASAL SPRAY 50 MCG/SPRY 120 SPRAY/16 GM NASL SCH ×2 (09:01→22:11)
[2018-07-17] MEDS: FAMOTIDINE 20 MG TABLET PO SCH ×2 (09:01→22:11)
[2018-07-17] MEDS: IPRATROPIUM/ALBUTEROL 0.5-2.5 MG/3 ML AMPUL NEB SCH ×3 (09:22→21:00)
[2018-07-17] MEDS: CEFTRIAXONE 2 GM/D5W RTU 2 GM/50 ML RTUPB IV SCH (13:47)
[2018-07-17] MEDS: PROMETHAZINE HCL 25 MG TABLET PO PRN (14:05)
--- NOTE | 2018-07-17 18:34 | PDOC PROGRESS REPORT ---
Subjective Progress Note for:: 07/17/18 Subjective:: The patient still has a congested cough. She is otherwise feeling better. She still has occasional pain in the abdomen. Reason For Visit: ACUTE RESPIRATORY FAILURE, PNEUMONIA Physical Exam Vital Signs: Temp Pulse Resp BP Pulse Ox 97.9 F 91 18 134/87 H 93 07/17/18 16:17 07/17/18 16:17 07/17/18 16:17 07/17/18 16:17 07/17/18 16:17 Intake & Output 07/16/18 07/17/18 07/18/18 06:59 06:59 06:59 Intake Total 2554.25 4580.85 1104.75 Balance 2554.25 4580.85 1104.75 Weight 86.9 kg 85.9 kg General appearance: PRESENT: no acute distress, cooperative Ear exam: PRESENT: normal external ear exam Mouth exam: PRESENT: moist Respiratory exam: PRESENT: clear to auscultation diego, other - Still with congested cough. ABSENT: rales, rhonchi, wheezes Cardiovascular exam: PRESENT: RRR, +S1, +S2 GI/Abdominal exam: PRESENT: normal bowel sounds, soft. ABSENT: tenderness Neurological exam: PRESENT: alert, awake, oriented to person, oriented to place, oriented to situation Psychiatric exam: PRESENT: appropriate affect, normal mood. ABSENT: agitated, anxious Focused psych exam: ABSENT: restlessness Results Laboratory Results: 07/14/18 06:13 07/14/18 06:13 07/15/18 00:30 Sputum AFB Smear Concentration - Final 07/15/18 00:30 Sputum Acid Fast Bacilli Smear - Final 07/11/18 16:15 Blood Blood Culture - Final NO GROWTH IN 5 DAYS 07/11/18 15:28 Blood Blood Culture - Final NO GROWTH IN 5 DAYS 07/13/18 00:47 Sputum Fungal Smear - Final 07/13/18 00:47 Sputum Fungal Smear - Final 07/13/18 00:47 Sputum AFB Smear Concentration - Final 07/13/18 00:47 Sputum Acid Fast Bacilli Smear - Final 07/16/18 07/16/18 14:55 14:55 Creatine Kinase 31 Troponin I < 0.012 Impressions: Abdomen/Pelvis CT 07/11/18 13:09 IMPRESSION: Large consolidation of the dependent right upper lobe, likely infectious given rapid interval resolution compared chest radiograph dated 07/04/2018. IMPRESSION: Status post cholecystectomy. Hepatic steatosis. No CT findings to explain acute abdominal pain. Chest X-Ray 07/11/18 13:09 IMPRESSION: Heterogeneous opacity of the right upper lobe, possibly with a small associated effusion. Elevation of the right hemidiaphragm. Findings are concerning for infection and possibly underlying mass. Consider CT to further evaluate. At minimum recommend follow-up radiographs in 6 to 8 weeks to ensure complete resolution. Chest CT 07/11/18 14:18 IMPRESSION: Large consolidation of the dependent right upper lobe, likely infectious given rapid interval resolution compared chest radiograph dated 07/04/2018. IMPRESSION: Status post cholecystectomy. Hepatic steatosis. No CT findings to explain acute abdominal pain. Assessment & Plan - Diagnosis (1) Acute respiratory failure with hypoxia Is this a current diagnosis for this admission?: Yes Plan: Acute respiratory failure secondary to pneumonia. The patient is back on room air. Respiratory failure resolved. (2) Right upper lobe pneumonia Qualifiers: Pneumonia type: due to Haemophilus influenzae Qualified Code(s): J14 - Pneu monia due to Hemophilus influenzae Is this a current diagnosis for this admission?: Yes Plan: The patient will receive several more days of amoxicillin therapy with anticipated discharge tomorrow. Please see the note from infectious diseases. She will remain on trimethoprim sulfamethoxazole for prophylaxis. (3) Asthma exacerbation Qualifiers: Asthma severity: severe Is this a current diagnosis for this admission?: Yes Plan: Congested cough is likely lingering secondary to the combination of asthma and pneumonia. I will institute a trial of Serevent for long-acting bronchodilation. (4) Epigastric abdominal tenderness Is this a current diagnosis for this admission?: Yes Plan: Still unsure of the exact etiology. Continue to treat symptomatically. (5) Hemoptysis Is this a current diagnosis for this admission?: Yes Plan: Resolved (6) Hypotension Qualifiers: Hypotension type: other hypotension type Qualified Code(s): I95.89 - Other hypotension Is this a current diagnosis for this admission?: Yes Plan: Resolved (7) Severe sepsis Is this a current diagnosis for this admission?: Yes Plan: Resolved (8) History of HIV infection Is this a current diagnosis for this admission?: Yes Plan: The patient will need to follow-up with infectious diseases to initiate antiretroviral therapy. This will be done as an outpatient. - Time Time Spent with patient: 15-24 minutes Medications reviewed and adjusted accordingly: Yes Anticipated discharge: Home Within: within 48 hours
--- NOTE | 2018-07-17 20:03 | EKG REPORT ---
SEVERITY:- BORDERLINE ECG - SINUS RHYTHM BORDERLINE PROLONGED QT INTERVAL : Confirmed by: Clarence Odell 17-Jul-2018 20:02:27
[2018-07-17] MEDS ORDERED: AMOXICILLIN TRIHYD 250 MG CAPSULE ONE (22:12)
[2018-07-17] MEDS ORDERED: SALMETEROL XINAFOATE DISKUS 50 MCG/1 DOSE 28 DOSE IH ONE (22:13)
[2018-07-17] MEDS: AMOXICILLIN TRIHYDRATE 500 MG CAPSULE PO SCH (23:13)
[2018-07-17] MEDS: SALMETEROL XINAFOATE DISKUS 50 MCG/1 DOSE 28 DOSE IH SCH (23:13)
[2018-07-18] MEDS ORDERED: AMOXICILLIN TRIHYDRATE 500 MG CAPSULE ONE (05:01)
[2018-07-18] MEDS: LEVOTHYROXINE SODIUM 0.025 MG TABLET PO SCH (05:24)
[2018-07-18] MEDS: AMOXICILLIN TRIHYDRATE 500 MG CAPSULE PO SCH (05:24)
[2018-07-18 07:36] LABS: ANION GAP 11 (5-19); BLOOD UREA NITROGEN 7 mg/dL (7-20); CALCIUM 8.5 mg/dL (8.4-10.2); CARBON DIOXIDE 22 mmol/L (22-30); CHLORIDE 106 mmol/L (98-107); GLUCOSE 79 mg/dL (75-110); POTASSIUM 4.5 mmol/L (3.6-5.0); SODIUM 139.1 mmol/L (137-145)
[2018-07-18] MEDS: IPRATROPIUM/ALBUTEROL 0.5-2.5 MG/3 ML AMPUL NEB SCH (08:08)
[2018-07-18] MEDS ORDERED: SULFAMETHOXAZOLE/TRIMETHOPRIM 800-160 MG TABLET PO SCH (10:00)
[2018-07-18] MEDS: GUAIFENESIN 600 MG TABLET.SA PO SCH (10:22)
[2018-07-18] MEDS: ENOXAPARIN SODIUM INJ 40 MG/0.4 ML DISP.SYRIN SUBCUT SCH (10:22)
[2018-07-18] MEDS: POTASSIUM CHLORIDE 10 MEQ CAPSULE.ER PO SCH (10:22)
[2018-07-18] MEDS: FAMOTIDINE 20 MG TABLET PO SCH (10:25)
[2018-07-18] MEDS: FLUTICASONE NASAL SPRAY 50 MCG/SPRY 120 SPRAY/16 GM NASL SCH (10:26)
[2018-07-18] MEDS: SALMETEROL XINAFOATE DISKUS 50 MCG/1 DOSE 28 DOSE IH SCH (10:26)
[2018-07-18 11:45] VITALS: BP 100/59
--- NOTE | 2018-07-18 13:05 | PDOC DISCHARGE SUMMARY ---
General - Admit/Disc Date/PCP Admission Date/Primary Care Provider: 07/11/18 16:08 Discharge Date: 07/18/18 - Discharge Diagnosis (1) Acute respiratory failure with hypoxia Is this a current diagnosis for this admission?: Yes Summary: Secondary to pneumonia right upper lobe pneumonia. The patient required oxygen and BiPAP continuously initially. Over the course of the week she began to need the BiPAP intermittently. Eventually she was just on nasal cannula and in fact was weaned off of the oxygen completely. Nebulizer treatments were administered as well.. She successfully tapered to room air. At the time of discharge she still had a congested cough but was stable. (2) Right upper lobe pneumonia Is this a current diagnosis for this admission?: Yes Summary: With patient's underlying HIV status there was concern for opportunistic infections including Mycobacterium and pneumocystis. The patient had 2 PPDs placed serially and both were negative. 1 of the 3 acid-fast smears came back negative. In addition the patient did have a positive sputum culture for Haemophilus influenza. After reviewing all of the results Dr. Miguel, infectious diseases at [facility], and I spoke at length. It is most likely that this is pneumonia from the Haemophilus influenza. It is not Mycobacterium and not pneumocystis. The plan will be to complete antibiotic therapy with amoxicillin for the Haemophilus. The patient will be given a prescription for Bactrim DS 1 tablet daily for prophylaxis. The patient was successfully tapered to room air. She will need to establish with a primary care provider as well as an HIV clinic. (3) Asthma exacerbation Is this a current diagnosis for this admission?: Yes Summary: The patient is no longer on oxygen. With aggressive nebulizer treatments the wheezing eventually resolved. She did continue with administration of nebulizers. Because of the underlying asthma she would be discharged with a Serevent inhaler for chronic use as well as an albuterol inhaler for as needed use. With her underlying immune status I did not discharge her on any steroid therapy either systemically or by inhaler. She will need to establish with a primary care provider as well for further management and possible additional workup. (4) Epigastric abdominal tenderness Is this a current diagnosis for this admission?: Yes Summary: The patient did undergo gastroscopy. There was no pathology noted. It is not clear what the exact etiology of the abdominal discomfort is however I have discharged her on Protonix 40 mg daily. This can be further evaluated and treated as an outpatient. (5) Hemoptysis Is this a current diagnosis for this admission?: Yes Summary: The hemoptysis was from the pneumonia. By x-ray it was a sizable pneumonia. The offending agent was adequately treated. The hemoptysis did resolve. (6) Hypotension Is this a current diagnosis for this admission?: Yes Summary: Resolved. See below. (7) Severe sepsis Is this a current diagnosis for this admission?: Yes Summary: The patient qualified for sepsis with tachycardia, hypotension, elevated white blood cell count, hypoxia and abnormal lactic acid. With the aggressive regimen of antibiotics and respiratory treatments including oxygen and BiPAP and with fluid resuscitation the patient slowly recovered and did not require vasopressor therapy. With fluid resuscitation and antibiotic therapy her blood pressure and heart rate normalized. Her white blood cell count normalized and as noted above she was able to taper to room air. (8) History of HIV infection Is this a current diagnosis for this admission?: Yes Summary: The patient's HIV status was in fact confirmed with serology. Thus far the patient has not established with an HIV clinic. She was traveling to [facility]. I encouraged her to establish with a primary care provider as well as an HIV clinic. I told her to have them request her medical records from this facility which will include blood work, imaging and her CD4 count. Will also include progress note from Dr. Miguel. - Additional Information Resuscitation Status: Full Code Discharge Diet: As Tolerated Discharge Activity: Activity As Tolerated, Balance Activity w/Rest Prescriptions: Albuterol Sulfate [Proair Hfa Inhalation Aerosol 8.5 gm Mdi] 1 puff IH Q4 PRN 30 Days #1 mdi PRN Reason: Amoxicillin Trihydrate [Amoxil 500 mg Capsule] 500 mg PO Q8 2 Days #6 capsule Omeprazole 40 mg PO DAILY 30 Days #30 capsule. Potassium Chloride [Klor-Con 10 Meq Capsule ER] 10 meq PO DAILY 30 Days #30 capsule.er Salmeterol Xinafoate [Serevent Diskus 50 Mcg/Dose 28 Dose/Diskus] 50 mcg IH Q12 30 Days #1 disk Sulfamethoxazole/Trimethoprim [Septra-Ds 800-160 mg Tablet] 1 tab PO DAILY 30 Days #30 tablet Home Medications: Albuterol Sulfate [Proair Hfa Inhalation Aerosol 8.5 gm Mdi] 1 puff IH Q4 PRN 30 Days #1 mdi 07/18/18 Amoxicillin Trihydrate [Amoxil 500 mg Capsule] 500 mg PO Q8 2 Days #6 capsule 07/18/18 Guaifenesin [Mucinex Sr 600 mg Tablet.sa] 600 mg PO Q12 PRN tablet.sa 07/18/18 Omeprazole 40 mg PO DAILY 30 Days #30 capsule. 07/18/18 Potassium Chloride [Klor-Con 10 Meq Capsule ER] 10 meq PO DAILY 30 Days #30 capsule.er 07/18/18 Salmeterol Xinafoate [Serevent Diskus 50 Mcg/Dose 28 Dose/Diskus] 50 mcg IH Q12 30 Days #1 disk 07/18/18 Sulfamethoxazole/Trimethoprim [Septra-Ds 800-160 mg Tablet] 1 tab PO DAILY 30 Days #30 tablet 07/18/18 History of Present Illness Patient complains of: The patient was experiencing epigastric pain for several weeks prior to presentation to the emergency department. He was also complaining of shortness of breath. History of Present Illness: EDVIN HOOK is a 32 year old female who was symptomatic for several weeks prior to presenting to the emergency department. Please see the admitting history and physical for specific details. The patient recently moved to the area from [place]. She has been experiencing epigastric discomfort for 3-4 weeks. She also began to feel short of breath. This prompted a visit to the emergency department. A trial of steroids was initiated and the patient was discharged. She returns with worsening shortness of breath as well as coughing up blood. She states that she began coughing about a month prior to admission and it consistently worsened. She noted some chest pain on the right that started prior to presenting to the emergency department. It was pleuritic in nature. At the time of the emergency department visit prior to the admission the patient did report that she may be HIV positive. The patient was referred to the hospitalist service for admission. Hospital Course Hospital Course: The patient had a prolonged hospital course. Physical Exam Vital Signs: Temp Pulse Resp BP Pulse Ox 98.0 F 72 18 100/59 L 90 L 07/18/18 11:38 07/18/18 11:38 07/18/18 11:38 07/18/18 11:38 07/18/18 11:38 Intake & Output 07/17/18 07/18/18 07/19/18 06:59 06:59 06:59 Intake Total 4580.85 1623.50 Output Total 800 Balance 4580.85 823.50 Weight 85.9 kg 84.9 kg General appearance: PRESENT: no acute distress, cooperative, well-developed Head exam: PRESENT: normocephalic Respiratory exam: PRESENT: clear to auscultation diego. ABSENT: decreased breath sounds, rales, rhonchi, stridor, wheezes Cardiovascular exam: PRESENT: RRR, +S1, +S2 GI/Abdominal exam: PRESENT: normal bowel sounds, soft, tenderness - Still with epigastric tenderness. Localizes in the epigastrium. Musculoskeletal exam: PRESENT: normal inspection Neurological exam: PRESENT: alert, awake, oriented to person, oriented to place, oriented to time, oriented to situation, CN II-XII grossly intact Psychiatric exam: PRESENT: normal mood. ABSENT: agitated, anxious Results Laboratory Results: 07/14/18 06:13 07/18/18 06:24 07/18/18 06:24 Sodium 139.1 Potassium 4.5 Chloride 106 Carbon Dioxide 22 Anion Gap 11 BUN 7 Creatinine 0.70 Est GFR ( Amer) > 60 Est GFR (Non-Af Amer) > 60 Glucose 79 Calcium 8.5 07/15/18 00:30 Sputum AFB Smear Concentration - Final 07/15/18 00:30 Sputum Acid Fast Bacilli Smear - Final 07/16/18 07/16/18 14:55 14:55 Creatine Kinase 31 Troponin I < 0.012 Impressions: Abdomen/Pelvis CT 07/11/18 13:09 IMPRESSION: Large consolidation of the dependent right upper lobe, likely infectious given rapid interval resolution compared chest radiograph dated 07/04/2018. IMPRESSION: Status post cholecystectomy. Hepatic steatosis. No CT findings to explain acute abdominal pain. Chest X-Ray 07/11/18 13:09 IMPRESSION: Heterogeneous opacity of the right upper lobe, possibly with a small associated effusion. Elevation of the right hemidiaphragm. Findings are concerning for infection and possibly underlying mass. Consider CT to further evaluate. At minimum recommend follow-up radiographs in 6 to 8 weeks to ensure complete resolution. Chest CT 07/11/18 14:18 IMPRESSION: Large consolidation of the dependent right upper lobe, likely infectious given rapid interval resolution compared chest radiograph dated 07/04/2018. IMPRESSION: Status post cholecystectomy. Hepatic steatosis. No CT findings to explain acute abdominal pain. Qualifiers - * PATIENT BEING DISCHARGED WITH ANY OF THE FOLLOWING DIAGNOSIS: No Plan Discharge Plan: The patient was discharged with the prescriptions noted above. She is traveling to [facility]. I did instruct her to establish with a primary care physician and that it was very important to establish with an HIV clinic. She moved to [place] from [place] and does have family in that area. Time Spent: Greater than 30 Minutes
== END 2018-07-18 12:06 | disposition home or self-care (01) | DRG 871 ==
LOC: ER 12:37 → EH 16:08 → 3W 17:04 → 3S 18:23
PROVIDERS: ADMIT Internal Medicine; ATTEND Internal Medicine
PROC: 0DB68ZX Excision of Stomach, Via Natural or Artificial Opening Endoscopic, Diagnostic (ICD-10-PCS; principal; 2018-07-12 13:00)
DX: A41.9 Sepsis, unspecified organism (principal); J96.01 Acute respiratory failure with hypoxia; J14 Pneumonia due to Hemophilus influenzae; R04.2 Hemoptysis; J45.901 Unspecified asthma with (acute) exacerbation; R65.20 Severe sepsis without septic shock; Z21 Asymptomatic human immunodeficiency virus [HIV] infection status; R10.13 Epigastric pain; I95.89 Other hypotension; Z79.899 Other long term (current) drug therapy
CPT/HCPCS: 36415; 43239; 71045; 71260; 731; 74177; 80048; 80053; 80061; 80074; 80307; 81001; 82272; 82550; 82607; 82746; 82803; 83605; 83735; 84439; 84443; 84481; 84484; 84703; 85025; 85610; 86360; 86592; 86701; 86702; 87015; 87040; 87070; 87077; 87086; 87101; 87116; 87205; 87206; 87252; 87491; 87536; 87591; 88305; 88342; 90686; 93005; 93010; 94640; 94799; 96365; 96366; 99285; J0456; J0696; J1650; J1885; J1956; J2270; J2405; J2704; J3480; J3490; J7030; J7040; J7060; J7620; S0164